=== PATIENT | male | born 1965 | race Caucasian/White ===

== ENCOUNTER 2021-03-31 10:06 | Observation (INO) | payer OTHER, SELFPAY ==
[2021-03-31] VITALS (13 sets, daily range): BP systolic 119–144; BP diastolic 80–99; PULSE 70–131; RESP 16–26; TEMP 36.4–36.9; O2SAT 89–100; BMI 25.4
--- NOTE | 2021-03-31 10:51 | XR_ITS ---
WS: [id number] Exam: XR chest 1V portable [id number] Date/Time of Exam: 03/31/2021 10:52 AM Reason For Exam: SOB Findings: The lungs are clear and fully expanded. Costophrenic angles are sharp. No infiltrates. Bronchovascula r relief appears normal. Cardiac silhouette is unremarkable. Bony elements are intact. XR/XR chest 1V portable [id number] IMPRESSION: Unremarkable chest radiograph.
--- NOTE | 2021-03-31 10:57 | ED_ITS ---
Documented by User: MARIANELA Zepeda 03/31/21 15:35 HPI - SOB/Dyspnea General: Chief Complaint: Shortness of Breath/Dyspnea Stated Complaint: SOB/SENT FROM FOR 78% O2 Time Seen by Provider: 03/31/21 10:52 Source: patient Mode of arrival: ambulatory Limitations: no limitations History of Present Illness: HPI Narrative: Patient is a 55-year-old male who presents to ED today after being seen at [facility] and referred to the ED for complaints of shortness of breath and hypoxia. According to patient O2 sats were 78% on room air at [facility]. Upon arrival he was 89% on room air. He states he has had shortness of breath over the past week. He feels like he is having some mild substernal pain and discomfort but states it does not feel like my heart or anything . He states sometimes he will wake up in the middle of the night with severe shortness of breath. Patient is an every day smoker. He has not noticed any cough apart from his baseline smoker's cough. He has not been running fevers. No body aches. He did notice a headache this morning. He has also had a few episodes of diarrhea. He is unvaccinated for COVID. No low er extremity swelling or calf pain. MD elicited complaint: shortness of breath Pertinent past history: other (smoking, unvaccinated for COVID) Onset (ago): day(s) Timing: constant Severity: moderate Exacerbating factors: exertion Relieving factors: nothing Associated symptoms: Reports chest pain; Deny abdominal pain, chest congestion, dizziness, fever(s), hemoptysis, lightheadedness, nausea, orthopnea, palpitations, syncope or vomiting Related Data: Home oxygen amount: none Review of Systems Const: Denies: fever(s), chills, body aches, fatigue or malaise Eyes: Denies: change in vision ENMT: Denies: throat pain, odynophagia, nasal discharge, nasal congestion or sinus pain Card: Reports: chest pain and dyspnea on exertion; Denies: palpitations, irregular heart rhythm, edema, swelling of feet/ankles, lightheadedness, syncope, pre-syncope, orthopnea, leg pain with exertion or acrocyanosis Resp: Reports: dyspnea, non-productive cough and pain on inspiration; Denies: wheezing, stridor, change in phlegm color, hemoptysis or chest congestion GI: Denies: abdominal pain, nausea, vomiting or diarrhea Musc: Denies: neck pain or back pain Skin/Breast: Denies: rash Neuro: Reports: headache(s); Denies: numbness in extremities, weakness in extremities, sensory changes, difficulty walking or dizziness Physical Exam Const: COMMON NORMALS: no acute distress, average body habitus, patient oriented x3, no limitations, healthy appearing, alert and well nourished GENERAL APPEARANCE: cooperative ORIENTATION/CONSCIOUSNESS: Yes awake, Yes oriented to person, Yes oriented to place and Yes oriented to time HENMT: COMMON NORMALS: normocephalic and atraumatic HEAD & SCALP: normocephalic and atraumatic Chest: COMMONS NORMALS: normal inspection of the chest and normal palpation of entire chest wall Resp: COMMON NORMALS: normal respiratory effort AUSCULTATION: wheezes (faint) expiratory wheezes Cardio: COMMON NORMALS: regular rate and regular rhythm RATE: regular rate RHYTHM: regular rhythm Extremity: COMMON NORMALS: no calf tenderness and no pedal edema Neuro: KORTNEY COMA SCALE: document GCS findings [place] coma scale eye opening: Spontaneous [place] coma scale verbal response: Orientated [place] coma scale motor response: Obey commands Kort[place] coma scale total score: 15 COMMON NORMALS: patient oriented x3, moves all extremities, no focal motor deficits and no sensory deficits noted SENSORIUM/ORIENTATION: Yes alert, Yes oriented to person, Yes oriented to place and Yes oriented to time Skin: COMMON NORMALS: no rashes or lesions noted GENERAL SKIN EXAM: no rashes or lesions noted TRAUMA: no lacerations or abrasions Course Consultations: Consultation #1: Dr. England-requests echocardiogram; will admit Vital Signs: Vital signs: Vital Signs Temperature 98.0 F 04/02/21 11:15 Pulse Rate 99 04/02/21 17:38 Respiratory Rate 22 H 04/02/21 15:48 Blood Pressure 105/56 04/02/21 11:15 Pulse Oximetry 87 L 04/02/21 15:51 MDM - SOB/Dyspnea MDM Narrative: Medical decision making narrative: Patient's labs are overall unremarkable. He has a normal D-dimer. His rapid COVID is negative. His CXR is normal however patient is persistently requiring oxygen. He was ambulated throughout the ED without oxygen and dropped to 80%. This clinically does not make sense with his findings thus far therefore CTA imaging will be obtained for further evaluation. CTA imaging shows no PE. Mild chronic emphysema and possible acute mild bronchiolitis. Again these do not adequately explain patient's hypoxia. During re-examination patient was noted to be in sinus tachycardia in the 130s. Patient will need to come into the hospital for unexplained hypoxia and tachycardia. Spoke to Dr. Vega who agrees with this assessment and will also evaluate patient. I spoken to Dr. England who requests echocardiogram and will admit. Lab Data: Labs: Lab Results 03/31/21 03/31/21 03/31/21 11:54 11:54 11:54 WBC 13.2 10^3/uL H 10 ^3/uL (4.0-10.0) RBC 5.17 10^6/uL 10^6 /uL (4.1-5.3) Hgb 18.4 g/dL H g/dL (11.7-16.6) Hct 54.4 % H % (42.0-52.0) MCV 105.2 fl H fl (80-94) MCH 35.6 pg H pg (28.0-34.0) MCHC 33.8 g/dL g/dL (30.0-36.0) RDW 11.9 % L % (12.1-15.1) Plt Count 209 10^3/cmm 10^3 /cmm (130-400) MPV 8.9 fL fL (7.4-10.4) Neut % (Auto) 77.7 % % Lymph % (Auto) 7.6 % % [place] % (Auto) 11.9 % % Eos % (Auto) 2.0 % % Baso % (Auto) 0.4 % % Neut # (Auto) 10.24 10^3/uL H 1 0^3/uL (1.8-7.7) Lymph # (Auto) 1.0 10^3/uL 10^3/ uL (0.8-4.8) [place] # (Auto) 1.6 10^3/uL H 10^ 3/uL (0.2-0.9) Eos # (Auto) 0.3 10^3/uL 10^3/ uL (0.0-0.8) Baso # (Auto) 0.1 10^3/uL 10^3/ uL (0.0-0.1) Nucleated RBC % (a uto) 0 % % Nucleated RBCs # 0.0 /100WBC /100W BC D-Dimer 0.50 ug/mIFEU ug/ mIFEU (0-0.59) Sodium 138 mmol/L mmol/L (136-145) Potassium 4.8 mmol/L mmol/L (3.5-5.1) Chloride 98 mmol/L mmol/L (98-107) Carbon Dioxide 31 mmol/L H mmol/ L (22-29) Anion Gap 13.8 (5-19) BUN 8 mg/dL mg/dL (6-20) Creatinine 0.9 mg/dL mg/dL (0.7-1.2) GFR Calculation 88.3 mL/min L mL/ min (90-130) Glucose 91 mg/dL mg/dL (65-115) Calculated Osmolal ity 284 mOsm/kg L mOs m/kg (285-295) Lactic Acid Calcium 9.3 mg/dL mg/dL (8.5-10.5) Total Bilirubin 0.7 mg/dL mg/dL (0.15-1.2) AST 13 U/L U/L (0-40) ALT 8 U/L U/L (0-41) Alkaline Phosphata se 127 IU/L IU/L (40-130) Troponin T Baselin e Troponin T [address] [place] Troponin T NT-Pro-B Natriuret Pep 28 pg/mL pg/mL (0-125) Total Protein 7.0 g/dL g/dL (6.6-8.7) Albumin 4.3 g/dL g/dL (3.5-5.2) Globulin 2.7 g/dL g/dL (1.3-4.6) Procalcitonin 0.10 ng/mL ng/mL (0-0.5) Nasal/Oral COVID-1 9 PCR SARS-CoV-2 Ag (Rap id) 03/31/21 03/31/21 03/31/21 11:54 12:50 13:06 WBC RBC Hgb Hct MCV MCH MCHC RDW Plt Count MPV Neut % (Auto) Lymph % (Auto) [place] % (Auto) Eos % (Auto) Baso % (Auto) Neut # (Auto) Lymph # (Auto) [place] # (Auto) Eos # (Auto) Baso # (Auto) Nucleated RBC % (a uto) Nucleated RBCs # D-Dimer Sodium Potassium Chloride Carbon Dioxide Anion Gap BUN Creatinine GFR Calculation Glucose Calculated Osmolal ity Lactic Acid 0.6 mmol/L mmol/L (0.5-2.2) Calcium Total Bilirubin AST ALT Alkaline Phosphata se Troponin T Baselin e 6 ng/L ng/L (0-15) Troponin T [address] [place] Troponin T NT-Pro-B Natriuret Pep Total Protein Albumin Globulin Procalcitonin Nasal/Oral COVID-1 9 PCR SARS-CoV-2 Ag (Rap id) Negative (Negative) 03/31/21 03/31/21 14:33 18:49 WBC RBC Hgb Hct MCV MCH MCHC RDW Plt Count MPV Neut % (Auto) Lymph % (Auto) [place] % (Auto) Eos % (Auto) Baso % (Auto) Neut # (Auto) Lymph # (Auto) [place] # (Auto) Eos # (Auto) Baso # (Auto) Nucleated RBC % (a uto) Nucleated RBCs # D-Dimer Sodium Potassium Chloride Carbon Dioxide Anion Gap BUN Creatinine GFR Calculation Glucose Calculated Osmolal ity Lactic Acid Calcium Total Bilirubin AST ALT Alkaline Phosphata se Troponin T Baselin e Troponin T [address] [place] 6.27 ng/L ng/L (0-15) Delta Troponin T 0.27 ABS# ABS# (0-10) NT-Pro-B Natriuret Pep Total Protein Albumin Globulin Procalcitonin Nasal/Oral COVID-1 9 PCR Not detected SARS-CoV-2 Ag (Rap id) Imaging Data^: CXR: Radiologist's impression: [address] [address] XRay Report Signed Patient: Bryant Hooks Unit #: [id number] : 1965 Age/Sex: 55 / M ADM Date: 03/31/21 Loc: ER Room/Bed: Attending Dr: Ordering Provider/Ordering MD: Nilam De La O Date of Service: 03/31/21 Procedure(s): XR chest 1V portable [id number] Accession Number(s): [id number] Report Number: [id number] WS: [id number] Exam: XR chest 1V portable [id number] Date/Time of Exam: 03/31/2021 10:52 AM Reason For Exam: SOB Findings: The lungs are clear and fully expanded. Costophrenic angles are sharp. No infiltrates. Bronchovascular relief appears normal. Cardiac silhouette is unremarkable. Bony elements are intact. XR/XR chest 1V portable [id number] IMPRESSION: Unremarkable chest radiograph. Dictated By: Jan Rao DO Signed By: Jan Rao DO Signed Date/Time: 03/31/21 1104 DD/ 1103 CTA Chest: Radiologist's impression: [facility] [address] [place] [address] CT Scan Report Signed Patient: Bryant Hooks Unit #: [id number] : 1965 Age/Sex: 55 / M ADM Date: 03/31/21 Loc: ER Room/Bed: Attending Dr: Ordering Provider/Ordering MD: Nilam De La O Date of Service: 03/31/21 Procedure(s): CT angio chest PE protcl [id number] Accession Number(s): [id number] Report Number: [id number] WS: [id number] CT CHEST ANGIOGRAPHY WITH REFORMATS HISTORY: SOB/hypoxia TECHNIQUE: Contiguous axial images are obtained through the chest during arterial injection of intravenous contrast. Images are reconstructed to evaluate the pulmonary arteries. MIP imaging also reviewed. All CT scans at [facility] use at least one of these dose optimization techniques: automated exposure control; mA and/or kV adjustment per patient size (includes targeted exams where dose is matched to clinical indication); or iterative reconstruction. CONTRAST: Omnipaque 350; 140 mL IV. DLP: 1221.07 mGy-cm. COMPARISON: None available. Suboptimal opacification of the pulmonary arteries. No filling defects are identified. 2 separate scans were obtained. Between the 2 scans no pulmonary embolism is appreciated. Mild atherosclerosis aorta. Heart size is normal. There is a small pericardial effusion. No LEFT atrial appendage thrombus. Lungs are hyperinflated. Thickening of the distal interstitium benign granuloma LEFT lower lobe. Mediastinal and hilar lymph nodes. This is probably a reactive adenopathy. The largest lymph node at the RIGHT hilum measures 4 mm. Small hiatal hernia. Visualized liver is normal. No adrenal mass. Negative gallbladder is visualized. No osteoblastic or osteolytic bone disease. Remote healed rib fractures in the posterior LEFT thorax. CT/CT angio chest PE protcl [id number] IMPRESSION: 1. No pulmonary embolism. 2. Chronic emphysema with no pneumonia. 3. Mild interstitial thickening may be chronic or related to a mild acute bronchiolitis. Dictated By: Maris Henry DO Signed By: Maris Herny DO Signed Date/Time: 03/31/21 1505 DD/ 1457 EKG Data^: EKG 1: EKG Interpretation Date: 03/31/21 EKG interpretation time: 12:23 Interpretation: Sinus rhythm Rate [address] elevation or depression changes noted Discharge Plan Discharge Patient Disposition: Admitted As Inpatient Admit Provider: Linn England Clinical Impression: Hypoxia, Tachycardia Condition: Fair Discharge Diet: Regular Discharge Activity: Increase activity as tolerated and Oxygen as instructed Coding Level of Care Code ED Plug Making Operator for Chg Fwd Exam Comprehensive Documented by User: Janeth Vega MD 04/03/21 22:27 HPI - SOB/Dyspnea General: Chief Complaint: Shortness of Breath/Dyspnea Stated Complaint: SOB/SENT FROM FOR 78% O2 Time Seen by Provider: 03/31/21 10:52 Course Vital Signs: Vital signs: Vital Signs Temperature 98.0 F 04/02/21 11:15 Pulse Rate 99 04/02/21 17:38 Respiratory Rate 22 H 04/02/21 15:48 Blood Pressure 105/56 04/02/21 11:15 Pulse Oximetry 87 L 04/02/21 15:51 MDM - SOB/Dyspnea Lab Data: Labs: Lab Results 03/31/21 03/31/21 03/31/21 11:54 11:54 11:54 WBC 13.2 10^3/uL H 10 ^3/uL (4.0-10.0) RBC 5.17 10^6/uL 10^6 /uL (4.1-5.3) Hgb 18.4 g/dL H g/dL (11.7-16.6) Hct 54.4 % H % (42.0-52.0) MCV 105.2 fl H fl (80-94) MCH 35.6 pg H pg (28.0-34.0) MCHC 33.8 g/dL g/dL (30.0-36.0) RDW 11.9 % L % (12.1-15.1) Plt Count 209 10^3/cmm 10^3 /cmm (130-400) MPV 8.9 fL fL (7.4-10.4) Neut % (Auto) 77.7 % % Lymph % (Auto) 7.6 % % [place] % (Auto) 11.9 % % Eos % (Auto) 2.0 % % Baso % (Auto) 0.4 % % Neut # (Auto) 10.24 10^3/uL H 1 0^3/uL (1.8-7.7) Lymph # (Auto) 1.0 10^3/uL 10^3/ uL (0.8-4.8) [place] # (Auto) 1.6 10^3/uL H 10^ 3/uL (0.2-0.9) Eos # (Auto) 0.3 10^3/uL 10^3/ uL (0.0-0.8) Baso # (Auto) 0.1 10^3/uL 10^3/ uL (0.0-0.1) Nucleated RBC % (a uto) 0 % % Nucleated RBCs # 0.0 /100WBC /100W BC D-Dimer 0.50 ug/mIFEU ug/ mIFEU (0-0.59) Sodium 138 mmol/L mmol/L (136-145) Potassium 4.8 mmol/L mmol/L (3.5-5.1) Chloride 98 mmol/L mmol/L (98-107) Carbon Dioxide 31 mmol/L H mmol/ L (22-29) Anion Gap 13.8 (5-19) BUN 8 mg/dL mg/dL (6-20) Creatinine 0.9 mg/dL mg/dL (0.7-1.2) GFR Calculation 88.3 mL/min L mL/ min (90-130) Glucose 91 mg/dL mg/dL (65-115) Calculated Osmolal ity 284 mOsm/kg L mOs m/kg (285-295) Lactic Acid Calcium 9.3 mg/dL mg/dL (8.5-10.5) Total Bilirubin 0.7 mg/dL mg/dL (0.15-1.2) AST 13 U/L U/L (0-40) ALT 8 U/L U/L (0-41) Alkaline Phosphata se 127 IU/L IU/L (40-130) Troponin T Baselin e Troponin T [address] [place] Troponin T NT-Pro-B Natriuret Pep 28 pg/mL pg/mL (0-125) Total Protein 7.0 g/dL g/dL (6.6-8.7) Albumin 4.3 g/dL g/dL (3.5-5.2) Globulin 2.7 g/dL g/dL (1.3-4.6) Procalcitonin 0.10 ng/mL ng/mL (0-0.5) Nasal/Oral COVID-1 9 PCR SARS-CoV-2 Ag (Rap id) 03/31/21 03/31/21 03/31/21 11:54 12:50 13:06 WBC RBC Hgb Hct MCV MCH MCHC RDW Plt Count MPV Neut % (Auto) Lymph % (Auto) [place] % (Auto) Eos % (Auto) Baso % (Auto) Neut # (Auto) Lymph # (Auto) [place] # (Auto) Eos # (Auto) Baso # (Auto) Nucleated RBC % (a uto) Nucleated RBCs # D-Dimer Sodium Potassium Chloride Carbon Dioxide Anion Gap BUN Creatinine GFR Calculation Glucose Calculated Osmolal ity Lactic Acid 0.6 mmol/L mmol/L (0.5-2.2) Calcium Total Bilirubin AST ALT Alkaline Phosphata se Troponin T Baselin e 6 ng/L ng/L (0-15) Troponin T [address] [place] Troponin T NT-Pro-B Natriuret Pep Total Protein Albumin Globulin Procalcitonin Nasal/Oral COVID-1 9 PCR SARS-CoV-2 Ag (Rap id) Negative (Negative) 03/31/21 03/31/21 14:33 18:49 WBC RBC Hgb Hct MCV MCH MCHC RDW Plt Count MPV Neut % (Auto) Lymph % (Auto) [place] % (Auto) Eos % (Auto) Baso % (Auto) Neut # (Auto) Lymph # (Auto) [place] # (Auto) Eos # (Auto) Baso # (Auto) Nucleated RBC % (a uto) Nucleated RBCs # D-Dimer Sodium Potassium Chloride Carbon Dioxide Anion Gap BUN Creatinine GFR Calculation Glucose Calculated Osmolal ity Lactic Acid Calcium Total Bilirubin AST ALT Alkaline Phosphata se Troponin T Baselin e Troponin T [address] [place] 6.27 ng/L ng/L (0-15) Delta Troponin T 0.27 ABS# ABS# (0-10) NT-Pro-B Natriuret Pep Total Protein Albumin Globulin Procalcitonin Nasal/Oral COVID-1 9 PCR Not detected SARS-CoV-2 Ag (Rap id) Discharge Plan Discharge Patient Disposition: Admitted As Inpatient Admit Provider: Linn England Clinical Impression: Hypoxia, Tachycardia Condition: Fair Discharge Diet: Regular Discharge Activity: Increase activity as tolerated and Oxygen as instructed Coding Level of Care Code ED Plug Making Operator for Jordang Fwd Exam Comprehensive
--- NOTE | 2021-03-31 10:58 | ECG_ITS ---
[facility] Test Date: 2021-03-31 Pat Name: Bryant Hooks Department: Room: Gender: Male Rotary Driller Prospecting: : 1965 Requested By: Nilam De La O Order Number: [id number] Henri MD: Tu Montoya M.D. Measurements Intervals [place] Rate: 93 P: 79 LA: 151 QRS: 89 QRSD: 78 T: 64 QT: 341 QTc: 425 Interpretive Statements SINUS RHYTHM LOW QRS VOLTAGE IN EXTREMITY LEADS [QRS DEFLECTION < 0.5 mV IN LIMB LEADS] PATTERN CONSISTENT WITH PULMONARY DISEASE No previous ECG available for comparison Electronically Signed On 03-31-2021 23:47:22 CDT by Tu Montoya M.D. [id number]
[2021-03-31 12:06] LABS: Basophils # 0.1 10^3/uL (0.0-0.1); Basophils % 0.4 %; Eosinophils # 0.3 10^3/uL (0.0-0.8); Hematocrit 54.4 % (42.0-52.0); Hemoglobin 18.4 g/dL (11.7-16.6); Lymphocytes % 7.6 %; Mean Corpuscular HGB Conc 33.8 g/dL (30.0-36.0); Mean Corpuscular Hemoglobin 35.6 pg (28.0-34.0); Mean Corpuscular Volume 105.2 fl (80-94); Mean Platelet Volume 8.9 fL (7.4-10.4); Monocytes # 1.6 10^3/uL (0.2-0.9); Monocytes % 11.9 %; Neutrophils # 10.24 10^3/uL (1.8-7.7); Neutrophils % 77.7 %; Nucleated Red Blood Cells % 0 %; Platelet Count 209 10^3/cmm (130-400); Red Blood Count 5.17 10^6/uL (4.1-5.3); Red Cell Distribution Width 11.9 % (12.1-15.1); White Blood Count 13.2 10^3/uL (4.0-10.0)
[2021-03-31 12:29] LABS: Troponin(5th) Baseline 6 ng/L (0-15)
[2021-03-31 12:39] LABS: Alanine Aminotransferase 8 U/L (0-41); Albumin Level 4.3 g/dL (3.5-5.2); Alkaline Phosphatase 127 IU/L (40-130); Aspartate Amino Transferase 13 U/L (0-40); Blood Urea Nitrogen 8 mg/dL (6-20); Calcium 9.3 mg/dL (8.5-10.5); Carbon Dioxide 31 mmol/L (22-29); Chloride 98 mmol/L (98-107); Globulin 2.7 g/dL (1.3-4.6); Glomerular Filtration Rate 88.3 mL/min (90-130); Glucose 91 mg/dL (65-115); NT Pro B Type Natriuretic Pept 28 pg/mL (0-125); Osmolality Calculated 284 mOsm/kg (285-295); Sodium 138 mmol/L (136-145); Total Bilirubin 0.7 mg/dL (0.15-1.2)
[2021-03-31 12:46] LABS: Anion Gap 13.8 (5-19); Potassium 4.8 mmol/L (3.5-5.1)
[2021-03-31 13:35] LABS: Lactic Sepsis W/Reflex 0.6 mmol/L (0.5-2.2)
[2021-03-31 13:37] LABS: SARS Covid-2 Antigen Negative (Negative)
--- NOTE | 2021-03-31 14:25 | CT_ITS ---
WS: [id number] CT CHEST ANGIOGRAPHY WITH REFORMATS HISTORY: SOB/hypoxia TECHNIQUE: Contiguous axial images are obtained through the chest during arterial injection of intrav enous contrast. Images are reconstructed to evaluate the pulmonary arteries. MIP imaging also reviewe d. All CT scans at [facility] use at least one of these dose optimization techniques: automat ed exposure control; mA and/or kV adjustment per patient size (includes targeted exams where dose is matched to clinical indication); or iterative reconstruction. CONTRAST: Omnipaque 350; 140 mL IV. DLP: 1221.07 mGy-cm. COMPARISON: None available. Suboptimal opacification of the pulmonary arteries. No filling defects are identified. 2 separate sca ns were obtained. Between the 2 scans no pulmonary embolism is appreciated. Mild atherosclerosis aort a. Heart size is normal. There is a small pericardial effusion. No LEFT atrial appendage thrombus. Lungs are hyperinflated. Thickening of the distal interstitium benign granuloma LEFT lower lobe. Medi astinal and hilar lymph nodes. This is probably a reactive adenopathy. The largest lymph node at the RIGHT hilum measures 4 mm. Small hiatal hernia. Visualized liver is normal. No adrenal mass. Negative gallbladder is visualized. No osteoblastic or osteolytic bone disease. Remote healed rib fractures in the posterior LEFT thorax. CT/CT angio chest PE protcl [id number] IMPRESSION: 1. No pulmonary embolism. 2. Chronic emphysema with no pneumonia. 3. Mild interstitial thickening may be chronic or related to a mild acute bron chiolitis.
--- NOTE | 2021-03-31 14:26 | PC.NURSE ---
pt ambulated down otero on ra and spo2 dropped to 80%
[2021-03-31] MEDS: iohexol 350 mg/mL 100 mL Btl IV (14:45)
[2021-03-31 15:15] LABS: Troponin 5 2HR 6.27 ng/L (0-15); Troponin 5 2HR Delta 0.27 ABS# (0-10)
--- NOTE | 2021-03-31 15:27 | PC.PHAR ---
PT STATES HE TAKES NO RX MEDICATIONS
--- NOTE | 2021-03-31 15:30 | ECG_ITS ---
[facility] Test Date: 2021-03-31 Pat Name: Bryant Hooks Department: Room: Gender: Male Sock Mender: : 1965 Requested By: Janeth Vega Order Number: [id number] Henri MD: Tu Montoya M.D. Measurements Intervals [place] Rate: 132 P: 114 AR: 131 QRS: 100 QRSD: 76 T: 58 QT: 290 QTc: 430 Interpretive Statements SINUS TACHYCARDIA BORDERLINE RIGHT AXIS DEVIATION [QRS AXIS > 90] PATTERN CONSISTENT WITH PULMONARY DISEASE INTERPRETATION BASED ON A DEFAULT AGE OF 40 YEARS Compared to ECG 03/31/2021 12:23:41 Sinus rhythm no longer present Electronically Signed On 03-31-2021 23:48:52 CDT by Tu Montoya M.D. [id number] f
[2021-03-31] MEDS: metoprolol tartrate 1 mg/1 mL SDV 5 mL 5 MG IVP (15:36)
[2021-03-31] MEDS: sodium chloride 0.9% 1,000 ML 999 ML IV (15:36)
--- NOTE | 2021-03-31 17:55 | P.HP_ITS ---
Providers/Chief Complaint Admitting Physician: Linn England MD Chief Complaint: SOB/SENT FROM FOR 78% O2 History of Present Illness Bryant Hooks is a 55 year old male with no significant past medical history or surgical history presented to the ER with complaints of shortness of breath. He also complained of a little bit of mid substernal pain which he has never had before. The pain lasted a few seconds and went away and never happen again. He does not use any oxygen at home. Patient is an active smoker smokes 2 packs/day. Lives alone. Is not vaccinated for Covid and has not been diagnosed with Covid in the past. Patient saturation on room air was 70% on arrival and then 89% on room air shortly thereafter. He was placed on 2 L and was saturating above 90% but after ambulation his oxygen saturation dropped to 80%. Labs were unremarkable in the ER. Rapid Covid was done which was negative. Patient was tachycardic in the 130s which EKG confirmed and therefore D-dimer was done which was D-dimer. CTA chest was done and PE was ruled out. CT chest did show a possible mild acute bronchiolitis. BNP normal. Baseline troponin normal. Delta troponin negative. C-reactive protein 10.6. Procalcitonin 0.09. Patient does endorse drinking alcohol daily 3 beers a night but answered 0 on CAGE questionnaire. He does not have a primary care doctor and does not follow- up with anybody. He has not been hospitalized in the recent few years. When seen by medical hospitalist he was in room 112 bed to sitting up in bed w ith nonlabored breathing saturating above 90% on 2 L. Appearing very comfortable and looking well. He had no complaints at this time was no longer shortness of breath or any chest pain. He denies having COPD or ever having a COPD exacerbation before. Review of Systems General: Reports: 10 or more systems reviewed and unremarkable except in HPI and below Medications/Allergies Home Medications Medication Instructions Recorded Confirmed Last Taken Type aspirin 650 mg PO Q6H PRN 03/31/21 03/31/21 03/31/21 03:00 History 650 MG Allergies Allergy/AdvReac Type Severity Reaction Status Date / Time Penicillins Allergy Unknown Verified 03/31/21 15:27 Vitals/I&O/Wt Last Vital Signs Temp 97.6 F 10/25/21 12:26 Pulse 76 03/31/21 17:52 Resp 18 03/31/21 17:52 BP 131/94 03/31/21 17:52 Pulse Ox 100 03/31/21 17:52 Weight last 48 hrs Weight 71.668 kg Physical Exam Narrative: EXAM NARRATIVE: General: Alert oriented x3, patient seen sitting up in bed on 2 L nasal cannula appearing very comfortable. HEENT: Normocephalic, atraumatic, EOMI, Cardio: Regular rate rhythm, normal S1-S2, no murmurs rubs gallops, Respiratory: Good bilateral air entry, mild rhonchi appreciated bilaterally. GI: Abdomen soft, nontender, nondistended, bowel sounds + Behavior: Appropriate and cooperative Extremities: Pulses 2+, no edema, no cyanosis Data : 04/01/21 04:48 04/01/21 04:48 A&P Assessment and plan (1) COPD exacerbation: Status: Acute (2) Hypoxia: Status: Acute (3) Polycythemia: Status: Acute (4) Alcohol use: Status: Acute (5) Nicotine dependence: Status: Acute Additional A&P Information #Possible COPD exacerbation/acute bronchiolitis ?Patient has been hypoxic in the ER and is requiring oxygen. Rapid Covid was negative. PCR Covid has been sent to lab. Ferritin is normal D-dimer is normal. Chest x-ray and CT do not show any infiltrates. There is evidence of chronic emphysema. Patient would benefit from outpatient pulmonary function tests. ?I will place him on Solu-Medrol 40 daily to see the response. Will not start antibiotics. Will reevaluate patient tomorrow and decide. Procalcitonin is also negative. Will place on DuoNeb every 4 hours. ?We will check echocardiogram to rule out cardiac etiology of shortness of breath -We will also check lipid profile and hemoglobin A1c. ?We will check TSH due to patient's tachycardic episode. -I am unclear if this is Covid but will rule out. #Polycythemia #Nicotine dependence ?Hemoglobin 18.4. It could be secondary to smoking. #Alcohol use 0 out of 4 on CAGE questionnaire ?We will start folic acid and thiamine daily Fluids: Not indicated Electrolytes: Replete as needed Nutrition: Regular diet Activity: As tolerated DVT prophylaxis Heparin subcu. Attestations Medical Necessity Statement*: Expected to cross greater than 48 hours due to oxygen requirement unless improvement earlier. Time Spent in Patient Care: Greater than 35 minutes Coding Level of Care Code Acute Animal Care Service Worker for Chg Fwd Diagnoses COPD exacerbation J44.1 Hypoxia R09.02 Polycythemia D75.1 Alcohol use Z72.89 Nicotine dependence F17.200
[2021-03-31 19:45] LABS: Troponin 5 6HR 7.53 ng/L (0-15); Troponin 5 6HR Delta 1.53 ng/L (0-12)
[2021-03-31 20:39] LABS: NT Pro B Type Natriuretic Pept 29 pg/mL (0-125); Procalcitonin 0.09 ng/mL (0-0.5)
[2021-03-31] MEDS: heparin 5,000 unit/mL INJ 1 mL 5000 UNIT SUBCUT (20:43)
[2021-03-31 20:50] LABS: C Reactive Protein 10.6 mg/L (0.0-4.9); Ferritin 398 ng/mL (30-400)
--- NOTE | 2021-03-31 21:29 | ECG_ITS ---
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 Measurements Intervals [place] Rate: 83 P: 79 NC: 158 QRS: 88 QRSD: 79 T: 60 QT: 356 QTc: 419 Interpretive Statements SINUS RHYTHM LOW QRS VOLTAGE IN EXTREMITY LEADS [QRS DEFLECTION < 0.5 mV IN LIMB LEADS] Compared to ECG 03/31/2021 15:17:00 Low QRS voltage now present Sinus tachycardia no longer present Electronically Signed On 03-31-2021 23:58:27 CDT by Tu Montoya M.D. [id number]
[2021-03-31] MEDS: ipratropium-albuterol 3 mL Neb INHALATION (23:45)
[2021-04-01] VITALS (15 sets, daily range): BP systolic 99–120; BP diastolic 63–77; PULSE 81–126; RESP 15–27; TEMP 36.6–36.9; O2SAT 89–94
[2021-04-01] MEDS: heparin 5,000 unit/mL INJ 1 mL 5000 UNIT SUBCUT ×3 (03:41→20:46)
[2021-04-01] MEDS: ipratropium-albuterol 3 mL Neb INHALATION ×2 (04:47→13:25)
[2021-04-01 05:11] LABS: Basophils % 0.1 %; Eosinophils # 0.5 10^3/uL (0.0-0.8); Eosinophils % 7.2 %; Hematocrit 51.9 % (42.0-52.0); Hemoglobin 17.6 g/dL (11.7-16.6); Lymphocytes # 0.8 10^3/uL (0.8-4.8); Mean Corpuscular HGB Conc 33.9 g/dL (30.0-36.0); Mean Corpuscular Hemoglobin 36.1 pg (28.0-34.0); Mean Corpuscular Volume 106.6 fl (80-94); Mean Platelet Volume 8.6 fL (7.4-10.4); Neutrophils # 5.02 10^3/uL (1.8-7.7); Neutrophils % 68.3 %; Nucleated Red Blood Cells % 0 %; Platelet Count 181 10^3/cmm (130-400); Red Blood Count 4.87 10^6/uL (4.1-5.3); White Blood Count 7.4 10^3/uL (4.0-10.0)
[2021-04-01 05:26] LABS: Alanine Aminotransferase 7 U/L (0-41); Albumin Level 3.7 g/dL (3.5-5.2); Alkaline Phosphatase 129 IU/L (40-130); Anion Gap 7.9 (5-19); Aspartate Amino Transferase 13 U/L (0-40); Blood Urea Nitrogen 8 mg/dL (6-20); Carbon Dioxide 36 mmol/L (22-29); Chloride 100 mmol/L (98-107); Chol HDL Ratio 3.12 mg/dL (1.0-5.00); Cholesterol 134 mg/dL (0-200); Globulin 2.9 g/dL (1.3-4.6); Glomerular Filtration Rate 101.1 mL/min (90-130); Glucose 94 mg/dL (65-115); HDL Cholesterol 43 mg/dL (60-100); LDL Cholesterol Calculated 74 mg/dL (50-129); LDL HDL Ratio 1.72 RATIO (0.00-3.22); Osmolality Calculated 286 mOsm/kg (285-295); Potassium 4.9 mmol/L (3.5-5.1); Sodium 139 mmol/L (136-145); Total Bilirubin 0.6 mg/dL (0.15-1.2); Total Protein 6.6 g/dL (6.6-8.7); Triglycerides 84 mg/dL (0-150)
[2021-04-01 06:41] LABS: Estmated Average Glucose 100; Hemoglobin A1C 5.1 % (4.0-6.0)
[2021-04-01] MEDS: folic acid 1 mg Tablet PO (07:53)
[2021-04-01] MEDS: thiamine 100 mg Tablet PO (07:53)
--- NOTE | 2021-04-01 08:00 | ECG_ITS ---
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 Measurements Intervals [place] Rate: 88 P: 74 MI: 153 QRS: 96 QRSD: 81 T: 68 QT: 347 QTc: 420 Interpretive Statements SINUS RHYTHM BORDERLINE RIGHT AXIS DEVIATION [QRS AXIS > 90] PATTERN CONSISTENT WITH PULMONARY DISEASE SEPTAL MYOCARDIAL INFARCTION , PROBABLY OLD [40+ ms Q WAVE IN V1/V2] Compared to ECG 03/31/2021 21:14:12 Myocardial infarct finding now present Electronically Signed On 04-01-2021 23:32:55 CDT by Colby Noe M.D. [email or web address] [email or web address] Hong Kong Holdings [id number]
--- NOTE | 2021-04-01 08:00 | XR_ITS ---
WS: [id number] Exam: XR chest 1V portable [id number] Date/Time of Exam: 04/01/2021 8:00 AM Reason For Exam: follow up Comparison 03/31/2021. The lungs are clear and fully inflated. Normal cardiomediastinal structures and regional bony element s. No pleural effusions. XR/XR chest 1V portable [id number] IMPRESSION: 1. Normal chest, no change.
--- NOTE | 2021-04-01 08:16 | P.PN_ITS ---
Subjective Subjective: Interval history: Seen and examined this morning. He is on 4 L nasal cannula. Previously at home he was not on any oxygen. He has very decreased bilateral air movement with mild rhonchi and wheezes present. He states he feels a little bit better but not entirely back to baseline. Vitals/I&O/Wt Last Vital Signs Temp 97.8 F 04/01/21 08:09 Pulse 95 04/01/21 08:09 Resp 27 H 04/01/21 08:09 BP 114/77 04/01/21 08:09 Pulse Ox 90 04/01/21 08:09 03/31/21 04/01/21 04/01/21 22:59 06:59 14:59 Intake Total 150 / 150 Balance 150 / 150 Weight last 48 hrs Weight 71.668 kg Physical Exam Narrative: EXAM NARRATIVE: General: Alert oriented x3, patient seen sitting up in bed on 4 L nasal cannula not in acute distress. HEENT: Normocephalic, atraumatic, EOMI, Cardio: Regular rate rhythm, normal S1-S2, no murmurs rubs gallops, Respiratory: Diminished bilateral air entry, wheezes and rhonchi present throughout lung li. GI: Abdomen soft, nontender, nondistended, bowel sounds + Behavior: Appropriate and cooperative Extremities: Pulses 2+, no edema, no cyanosis Data : 04/01/21 04:48 04/01/21 04:48 A&P Assessment and plan (1) COPD exacerbation: Status: Acute (2) Hypoxia: Status: Acute (3) Polycythemia: Status: Acute (4) Alcohol use: Status: Acute (5) Nicotine dependence: Status: Acute Additional A&P Information #Acute COPD exacerbation/acute bronchiolitis -Patient probably has underlying COPD due to his smoking. ?Patient has been hypoxic in the ER and is requiring oxygen. Rapid Covid was negative. PCR Covid has been sent to lab. Ferritin is normal D-dimer is normal. Chest x-ray and CT do not show any infiltrates. There is evidence of chronic emphysema. Patient would benefit from outpatient pulmonary function tests. ?Procalcitonin negative. There is no evidence of pneumonia. I will increase So garrett-Medrol from 40 daily to 40 every 8 hours. We will also add azithromycin for 5 days. Duo nebs every 4 hours [id number]. Will add incentive spirometer and Acapella. ?Echo is pending Hemoglobin A1c and lipid profile is also pending TSH normal, procalcitonin normal Covid PCR pending. #Polycythemia #Nicotine dependence ?Hemoglobin 18.4. It could be secondary to smoking. #Alcohol use 0 out of 4 on CAGE questionnaire ?We will start folic acid and thiamine daily Fluids: Not indicated Electrolytes: Replete as needed Nutrition: Regular diet Activity: As tolerated DVT prophylaxis Heparin subcu. Attestations Medical Necessity Statement*: Requires another 2 days of inpatient stay. Time Spent in Patient Care: less than 15 minutes Coding Level of Care Code Acute Property Field Inspector for [facility] Fwd Diagnoses COPD exacerbation J44.1 Hypoxia R09.02 Polycythemia D75.1 Alcohol use Z72.89 Nicotine dependence F17.200
[2021-04-01] MEDS: azithromycin 500 MG in sodium chloride 0.9% 250 ML 250 MG IV (12:20)
--- NOTE | 2021-04-01 14:38 | ECG_ITS ---
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 Measurements Intervals [place] Rate: 87 P: 75 IN: 152 QRS: 84 QRSD: 81 T: 69 QT: 349 QTc: 420 Interpretive Statements SINUS RHYTHM INDETERMINATE AXIS Compared to ECG 04/01/2021 09:33:52 Indeterminate axis now present Myocardial infarct finding no longer present Electronically Signed On 04-01-2021 23:29:39 CDT by Colby Noe M.D. [email or web address] [email or web address] medical centerTherOxgeorgetown behavioral [email or web address]/store/[id number]
--- NOTE | 2021-04-01 20:18 | PC.NURSE ---
Shift Note Frequent safety and comfort rounds continue. Orders and/or nursing care completed as indicated. Patient monitored for response to intervention and treatment(s). Education provided includes breathing treatments, solumedrol, smoking cessation, deep breathing exercises. Patient and/or loan servicing representative teaches back. Will continue to monitor.
[2021-04-01] MEDS: ipratropium 0.5 mg/2.5 mL Neb INHALATION ×2 (20:45→23:52)
[2021-04-01] MEDS: levalbuterol 0.63 mg/3 mL Neb INHALATION ×2 (20:45→23:52)
[2021-04-02] VITALS (15 sets, daily range): BP systolic 105–118; BP diastolic 56–74; PULSE 87–116; RESP 16–22; TEMP 36.7; O2SAT 86–93
[2021-04-02] MEDS: heparin 5,000 unit/mL INJ 1 mL 5000 UNIT SUBCUT ×2 (03:27→11:11)
--- NOTE | 2021-04-02 05:00 | USCV_ITS ---
Vin Hooksdie Age: 55 Gender: M : 1965 Exam Date: 04/02/2021 06:34 Ordering Phys: Linn England MD Technologist: Aleksandra Arias [place] [facility] [facility] [place] Indication: SOB BP: 109 / 74 HR: 87 Rhythm: Sinus Technical Quality: Adequate MEASUREMENTS (Male / Female) Normal Values 2D ECHO LV Diastolic Diameter PLAX 4.1 cm 4.2 - 5.9 / 3.9 - 5.3 cm LV Systolic Diameter PLAX 3.2 cm IVS Diastolic Thickness 1.3 cm 0.6 - 1.0 / 0.6 - 0.9 cm IVS Systolic Thickness 1.7 cm LVPW Diastolic Thickness 1.8 cm 0.6 - 1.0 / 0.6 - 0.9 cm LVPW Systolic Thickness 2.1 cm LVOT Diameter 2.0 cm LV Ejection Fraction 2D Teich 45.7 % LV Ejection Fraction MOD 2C 64.0 % LV Ejection Fraction 2C AL 66.0 % LA Diameter 3.1 cm LA Width 2.5 cm LA Height 3.1 cm RA Width 2.0 cm RA Height 3.2 cm Aorta at Sinotubular Diameter 2.7 cm M-MODE Aortic Annulus Diameter 2.9 cm LA Ao Ratio MM 1.0 MV E Point Septal Separation 0.4 cm DOPPLER AV Peak Velocity 125.7 cm/s LVOT Peak Velocity 86.0 cm/s AV Area Cont Eq vti 2.3 cm squared AV Area Cont Eq pk 2.2 cm squared MV Peak Velocity 80.0 cm/s MV Area PHT 3.9 cm squared Mitral E to A Ratio 1.1 MV E' Velocity 45.5 cm/s Mitral E to MV E' Ratio 8.5 Mitral E to LV E' Lateral Ratio 8.5 Mitral E to LV E' Septal Ratio 8.5 TV Peak E Velocity 45.0 cm/s Right Atrial Pressure 3.0 mmHg PV Peak Velocity 87.0 cm/s RV Acceleration Time 0.1 s RV Ejection Time 0.3 s RV AcT/ET 0.3 FINDINGS Left Ventricle Normal left ventricular size and systolic function, EF 62 %. No regional wall motion abnormalities. Mild left ventricular hypertrophy. Right Ventricle The right ventricle is normal in size and function. Right Atrium The right atrium is normal in size. Left Atrium The left atrium is normal in size. Mitral Valve No gross abnormalities noted Aortic Valve No gross abnormalities noted Tricuspid Valve No gross abnormalities noted Pulmonic Valve Pulmonic valve not well visualized. Pericardium Normal pericardium without effusion. Aorta Normal aortic annulus size. CONCLUSIONS Normal left ventricular size and systolic function, EF 62 %. No regional wall motion abnormalities. Mild left ventricular hypertrophy. Normal cardiac chamber sizes. Valve morphologies could not be delineated well. No gross abnormalities noted There is no pericardial effusion. Technically difficult study because of the poor ultrasonic window. Dr Tu Montoya MD FACC (Electronically Signed) Final Date: 02 April 2021 14:03 S
[2021-04-02 05:30] LABS: Basophils % 0.1 %; Eosinophils % 0.1 %; Hematocrit 54.8 % (42.0-52.0); Hemoglobin 18.5 g/dL (11.7-16.6); Lymphocytes # 0.3 10^3/uL (0.8-4.8); Lymphocytes % 2.9 %; Mean Corpuscular HGB Conc 33.8 g/dL (30.0-36.0); Mean Corpuscular Hemoglobin 35.3 pg (28.0-34.0); Mean Corpuscular Volume 104.6 fl (80-94); Mean Platelet Volume 8.7 fL (7.4-10.4); Monocytes # 0.2 10^3/uL (0.2-0.9); Monocytes % 1.4 %; Neutrophils # 11.17 10^3/uL (1.8-7.7); Neutrophils % 95.2 %; Nucleated Red Blood Cells % 0 %; Platelet Count 216 10^3/cmm (130-400); Red Blood Count 5.24 10^6/uL (4.1-5.3); Red Cell Distribution Width 11.8 % (12.1-15.1); White Blood Count 11.7 10^3/uL (4.0-10.0)
[2021-04-02 05:56] LABS: Blood Urea Nitrogen 11 mg/dL (6-20); Calcium 9.3 mg/dL (8.5-10.5); Carbon Dioxide 32 mmol/L (22-29); Chloride 98 mmol/L (98-107); Glomerular Filtration Rate 140.9 mL/min (90-130); Glucose 135 mg/dL (65-115); Osmolality Calculated 281 mOsm/kg (285-295); Sodium 135 mmol/L (136-145)
[2021-04-02 06:00] LABS: Anion Gap 9.7 (5-19); Potassium 4.7 mmol/L (3.5-5.1)
--- NOTE | 2021-04-02 06:15 | NUR.SHIFT ---
Shift Note Frequent safety and comfort rounds continue. Orders and/or nursing care completed as indicated. Patient monitored for response to intervention and treatment(s). Education provided includes[Oxygen importance and interventions]. Patient and/or truck sales representative verbalizes understanding. Will continue to monitor.
[2021-04-02] MEDS: levalbuterol 0.63 mg/3 mL Neb INHALATION ×3 (07:30→15:47)
[2021-04-02] MEDS: ipratropium 0.5 mg/2.5 mL Neb INHALATION ×3 (07:30→15:47)
[2021-04-02] MEDS: folic acid 1 mg Tablet PO (07:46)
[2021-04-02] MEDS: thiamine 100 mg Tablet PO (07:46)
[2021-04-02] MEDS: azithromycin 250 mg Tablet PO (07:46)
--- NOTE | 2021-04-02 09:50 | PC.CHAP ---
Pastoral Care Encounter/Spiritual Assessment Type of Contact [] Declined prison warden visit [] Patient/Family/Request visit [] Outpatient visit [] Follow-up visit [] Physician referral [] Code/Alert [x] Routine visit [] Staff referral [] Actively dying [] Patient sleeping [] Family support [] [] Out of room [] Palliative care [] [x] Receiving care in room [] Pre-surgical visit [] Trauma [] Long length of stay [] ICU visit [] Other: Relational/Emotional Strength [] Patient feels connected with others/family/visitors/staff [] Distress [] Loneliness/isolation [] Abandonment Spirituality of Patient [] Person of Rain [] Attends Baptist of their Rain [] Believes in Prayer [] Reads Bible or Hinduism materials [] There are Spiritual issues to be addressed Sausage Cooker Interventions [x] Prayer [] Active listening [] Non-anxious presence [] Spiritual/emotional support [] Crisis/trauma care [] Spiritual counseling [] Bereavement support [] Provided bereavement packet [] Provided Bible/devotional materials [] Provided toy/stuffed animal, coloring book to patient or family member [] Provided Communion [] Anointing/Lula [] Salvation [x] Completed spiritual assessment [] Other: Impact on Illness or Injury [] Angry [] Fearful [] Anxious [] Often cries [] Exhaustion [] Unable to work [] Unable to attend adventism [] Unable to walk/stand [] Unable to read [] Unable to drive [] Unable to eat/drink [] Unable to sleep [] Unable to be with family [] Patient intubated [] Other: Summary Time spent with patient
--- NOTE | 2021-04-02 10:02 | XR_ITS ---
WS: [id number] Exam: XR chest 1V portable [id number] Date/Time of Exam: 04/02/2021 10:04 AM Reason For Exam: Follow up Comparison 04/01/2021. Mild plaque atelectasis in the left base. No consolidating infiltrate. The lungs are fully expanded. Normal cardiomediastinal structures and bony elements. XR/XR chest 1V portable [id number] IMPRESSION: 1. Mild plaque atelectasis in the left base. No acute process noted.
[2021-04-02 11:05] LABS: Coronavirus Test Green County Not Detected
[2021-04-02] MEDS: sodium chloride 0.9% 500 ML IV (11:11)
[2021-04-02 11:28] LABS: ABG PCO2 49.9 mmHg (35-45); ABG PH Result 7.41 (7.35-7.45); Alveolar-Arterial Oxygen Gradi 21.9 mmHg (5-10); Arterial Blood Gas Hematocrit 57.2 % (42-52); Base Excess ABG 5.3 mmol/L (-2.0-2.0); Blood Gas Allen Test Pos; Blood Gas Sample Site Radial, right; Blood Gas Sample Type Arterial; Carboxyhemoglobin 1.1 %THgb (0.4-20.1); HCO3 ABG 31.6 mmol/L (22-26); HGB O2 Sat 87.2 % (95-100); Ionized Calcium Level - ABG 1.2 mmol/L (1.1-1.4); Methemoglobin 0.6 % (0.4-1.5); Oxygen Device NC; Oxygen Saturation ABG 88.7; PO2 ABG 53.7 mmHg (80.0-100.0); Potassium Level - ABG 4.2 mmol/L (3.5-5.0); Total Hemoglobin 18.7 g/dL (14-18)
--- NOTE | 2021-04-02 16:18 | PM.DCS ---
Discharge Providers Date of Admission: 03/31/21 18:54 Date of Discharge: April 02, 2021 Attending Provider at Admission: Linn England MD Attending Provider at Discharge: Linn England MD Diagnoses at Discharge Discharge Diagnosis (1) COPD exacerbation: Status: Acute (2) Hypoxia: Status: Acute (3) Polycythemia: Status: Acute (4) Alcohol use: Status: Acute (5) Nicotine dependence: Status: Acute Reason for Visit Reason for Visit: SOB/SENT FROM FOR 78% O2 Hospital Course Hospital Course Bryant Hooks is a 55 year old male with no significant past medical history or surgical history presented to the ER with complaints of shortness of breath. He also complained of a little bit of mid substernal pain which he has never had before. The pain lasted a few seconds and went away and never happen again. He does not use any oxygen at home. Patient is an active smoker smokes 2 packs/day. Lives alone. Is not vaccinated for Covid and has not been diagnosed with Covid in the past. Patient saturation on room air was 70% on arrival and then 89% on room air shortly thereafter. He was placed on 2 L and was saturating above 90% but after ambulation his oxygen saturation dropped to 80%. Labs were unremarkable in the ER. Rapid Covid was done which was negative. Patient was tachycardic in the 130s which EKG confirmed and therefore D-dimer was done which was D-dimer. CTA chest was done and PE was ruled out. CT chest did show a possible mild acute bronchiolitis. BNP normal. Baseline troponin normal. Delta troponin negative. C-reactive protein 10.6. Procalcitonin 0.09. Patient does endorse drinking alcohol daily 3 beers a night but answered 0 on CAGE questionnaire. He does not have a primary care doctor and does not follow-up with anybody. He has not been hospitalized in the recent few years. When seen by medical hospitalist he was in room 112 bed to sitting up in bed with nonlabored breathing saturating above 90% on 2 L. Appearing very comfortable and looking well. He had no complaints at this time was no longer shortness of breath or any chest pain. He denies having COPD or ever having a COPD exacerbation before. Course Pt was treated for COPD exacerbation and improved. He was sent home on spirva, albuterol, symbicort and 5L O2 as his new baseline. CT showed emphysema. Patient was setup with pulmnology f/u as outpatient for PFT and further management. COVID was negative. Echo normal.Pt was also encouraged to quit smoking. He agreed for that. He was sent home on nicotine patches. Alpha 1 antitripsin level was drawn, EPO level was checked. Patient to follow with pulm Physical Exam Narrative: EXAM NARRATIVE: General: Alert oriented x3, patient seen sitting up in bed on 5 L nasal cannula not in acute distress. HEENT: Normocephalic, atraumatic, EOMI, Cardio: Regular rate rhythm, normal S1-S2, no murmurs rubs gallops, Respiratory: Diminished bilateral air entry, wheezes and rhonchi present throughout lung li. GI: Abdomen soft, nontender, nondistended, bowel sounds + Behavior: Appropriate and cooperative Extremities: Pulses 2+, no edema, no cyanosis Discharge Data Data Completed and Pending: Completed Studies During Hospitalization Category Date Time Status CT angio chest PE protcl [id number] Urge nt Cat Scan 03/31/21 14:25 Completed XR chest 1V alexandra ble [id number] Routine Exams 04/01/21 08:00 Completed XR chest 1V alexandra ble [id number] Urgent Exams 03/31/21 10:51 Completed XR chest 1V alexandra ble [id number] Urgent Exams 04/02/21 10:02 Completed CV. echo complete * [id number] Routine Ultrasound 04/02/21 05:00 Completed Pending at discharge Category Date Time Status Alpha 1 Antitryps in Routine Lab 04/02/21 16:16 Ordered Erythropoietin Ro utine Lab 04/02/21 16:16 Ordered Sputum Culture an d Gram Stain Fabrice ne Lab 04/01/21 10:59 Uncollected Labs from last 24 hours 04/02/21 04/02/21 04/02/21 11:14 04:50 04:50 WBC 11.7 H RBC 5.24 Hgb 18.5 H Hct 54.8 H MCV 104.6 H MCH 35.3 H MCHC 33.8 RDW 11.8 L Plt Count 216 MPV 8.7 Neut % (Auto) 95.2 Lymph % (Auto) 2.9 [place] % (Auto) 1.4 Eos % (Auto) 0.1 Baso % (Auto) 0.1 Neut # (Auto) 11.17 H Lymph # (Auto) 0.3 L [place] # (Auto) 0.2 Eos # (Auto) 0.0 Baso # (Auto) 0.0 Nucleated RBC % (a uto) 0 Nucleated RBCs # 0.0 Specimen Type Arterial Sample Site Radial, right ABG pH 7.41 ABG pCO2 49.9 H ABG pO2 53.7 L ABG HCO3 31.6 H ABG O2 Saturation 88.7 ABG Base Excess 5.3 H Jamil Test Pos A-a O2 Gradient 21.9 H Hematocrit 57.2 H Hgb O2 Saturation 87.2 L Carboxyhemoglobin 1.1 Methemoglobin 0.6 Total Hemoglobin 18.7 H Ionized Calcium 1.2 O2 Delivery Device Nc O2 Liters/Min 5.0 FiO2 40.0 Sail Repair Person ID [email or web address] Sodium 139.0 135 L Potassium 4.2 4.7 Chloride 98 Carbon Dioxide 32 H Anion Gap 9.7 BUN 11 Creatinine 0.6 L GFR Calculation 140.9 H Glucose 148.0 H 135 H Calculated Osmolal ity 281 L Calcium 9.3 Nasal/Oral COVID-1 9 PCR 03/31/21 18:49 WBC RBC Hgb Hct MCV MCH MCHC RDW Plt Count MPV Neut % (Auto) Lymph % (Auto) [place] % (Auto) Eos % (Auto) Baso % (Auto) Neut # (Auto) Lymph # (Auto) [place] # (Auto) Eos # (Auto) Baso # (Auto) Nucleated RBC % (a uto) Nucleated RBCs # Specimen Type Sample Site ABG pH ABG pCO2 ABG pO2 ABG HCO3 ABG O2 Saturation ABG Base Excess Jamil Test A-a O2 Gradient Hematocrit Hgb O2 Saturation Carboxyhemoglobin Methemoglobin Total Hemoglobin Ionized Calcium O2 Delivery Device O2 Liters/Min FiO2 Sail Repair Person ID Sodium Potassium Chloride Carbon Dioxide Anion Gap BUN Creatinine GFR Calculation Glucose Calculated Osmolal ity Calcium Nasal/Oral COVID-1 9 PCR Not detected Vitals: Last Vital Signs Temp 98.0 F 04/02/21 11:15 Pulse 99 04/02/21 15:55 Resp 22 H 04/02/21 15:48 BP 105/56 04/02/21 11:15 Pulse Ox 87 L 04/02/21 15:51 Discharge Plan Discharge Patient Disposition: Home Condition: Fair Prescriptions: New folic acid 1 mg Tablet 1 mg PO DAILY 30 Days Qty: 30 RF: 0 Vitamin B-1 (mononitrate) 100 mg Tablet 100 mg PO DAILY 30 Days Qty: 30 RF: 0 prednisone 10 mg tablet 10 mg PO DAILY 15 Days Qty: 35 RF: 0 albuterol sulfate 90 mcg/actuation HFA aerosol inhaler 2 inh inhalation Q4H PRN (Reason: shortness of breath or wheezing) 30 Days Qty: 8.5 RF: 2 Symbicort 160-4.5 mcg/actuation HFA aerosol inhaler 2 inh inhalation BID 30 Days Qty: 10.2 RF: 2 Spiriva Respimat 2.5 mcg/actuation mist 2 inh inhalation DAILY 30 Days Qty: 4 RF: 2 nicotine 21 mg/24 hr patch 24 hour 1 patch transdermal DAILY 30 Days Qty: 28 RF: 0 Discontinued aspirin 325 mg Tablet 650 mg PO Q6H PRN (Reason: Headache) RF: 0 Discharge Orders: Discharge Order (Routine); Ordered 04/02/21 Ordered By: Linn England Other Ambulatory Orders: DME: Oxygen (Order) Location: None Selected Ordered By: Linn England Referrals: Kamran Copeland MD [Physician] - 04/07/21 9:00 am (You have an appointment with Dr. Copeland on April 07 at 9:00am if you can not keep this appointment please contact providers office to arrange your follow up care. New dx of emphysema) Raúl Herzog DO [Physician] - 04/08/21 11:15 am (You have a new patient appointment for you follow up care with Aleksandra Holder on at 11:15 If you are unable to keep this appointment please contact [facility] to arrange you follow up care.) Discharge Diet: Regular Discharge Activity: Increase activity as tolerated and Oxygen as instructed Patient Instructions: Opioid Safety Discharge Attestations Time Spent in Discharge Care*: less than 30 min Quality Metrics Clinical Quality Measures During this hospital stay, did patient experience: None Coding Level of Care Code Acute [facility] note Diagnoses COPD exacerbation J44.1 Hypoxia R09.02 Polycythemia D75.1 Alcohol use Z72.89 Nicotine dependence F17.200
[2021-04-07 11:52] LABS: Alpha 1 Antitrypsin 116 mg/dL (83-199)
[2021-04-07 15:12] LABS: Erythropoietin 5.8 mIU/mL (2.6-18.5)
== END 2021-04-02 17:39 | disposition home or self-care (01) ==
LOC: ER 15:51 → CSU 04-01 06:03
PROVIDERS: Emergency Medicine; Admitting Provider Internal Medicine; Emergency Provider Physician Assistant; Visit Provider Internal Medicine
DX: J44.1 Chronic obstructive pulmonary disease with (acute) exacerbation (principal); R09.02 Hypoxemia; D75.1 Secondary polycythemia; F17.200 Nicotine dependence, unspecified, uncomplicated; R00.0 Tachycardia, unspecified; Z79.82 Long term (current) use of aspirin; Z72.89 Other problems related to lifestyle
CPT/HCPCS: 36415; 36600; 71045; 71275; 80048; 80051; 80053; 80061; 82103; 82330; 82668; 82728; 82805; 83036; 83605; 83880; 84145; 84484; 85025; 85378; 86140; 87426; 87635; 93005; 93306; 94640; 94664; 96361; 96365; 96372; 96375; 96376; 99285; G0378; J0456; J1644; J2920; J3490; J7030; J7040; J7050; J7614; J7644; Q0144; Q9967

== ENCOUNTER → 2021-05-02 11:17 | Outpatient (BNVA) | payer OTHER, SELFPAY | PROVIDERS: PCP Internal Medicine; Visit Provider Internal Medicine Critical Care Medicine | DX: Z01.812 Encounter for preprocedural laboratory examination (principal); Z20.822 Contact with and (suspected) exposure to COVID-19 | CPT/HCPCS: 87635 ==

== ENCOUNTER 2021-05-08 08:34 | Outpatient (CLI) | payer OTHER, SELFPAY ==
--- NOTE | 2021-05-08 11:02 | PFTS_ITS ---
Date of Study:05/08/21 Date of Dictation: 05/13/2021 MECHANICS: Postbronchodilator forced vital capacity (FVC) is reduced Postbronchodilator forced expiratory volume in one second (FEV1) is severely reduced 37 %. FEV1/FVC is reduced. There is significant response to bronchodilators FLOW VOLUME LOOP: Severe sloping of expiratory limb suggestive of severe airway obstruction . LUNG VOLUMES: Total lung capacity (TLC) is normal. Residual volume (RV) is increased suggestive of severe air trapping. DIFFUSING CAPACITY FOR CARBON MONOXIDE: Normal. . INTERPRETATION: The postbronchodilator spirometry is consistent with severe obstructive ventilatory disease with severe air trapping on lung volumes. There is significant response to bronchodilators. Surprisingly gas transfer is normal to the amount of obstruction.Overall constellation of findings on this PFT are consistent with reversible obstructive ventilatory disease entities like asthma, there is a possibility it can be emphysema and coexisting pulmonary vascular disease. Clinical correlation is strongly recommended. MTDD
== END 2021-05-08 08:35 | disposition home or self-care (01) ==
LOC: RT 08:37
PROVIDERS: PCP Internal Medicine; Visit Provider Internal Medicine Critical Care Medicine
DX: J44.9 Chronic obstructive pulmonary disease, unspecified (principal)
CPT/HCPCS: 94060; 94726; 94729

== ENCOUNTER 2021-05-15 09:31 | Outpatient (CLI) | payer OTHER, SELFPAY ==
[2021-05-15 09:52] LABS: Basophils % 0.4 %; Eosinophils # 0.3 10^3/uL (0.0-0.8); Eosinophils % 5.8 %; Hematocrit 45.3 % (42.0-52.0); Hemoglobin 15.8 g/dL (11.7-16.6); Lymphocytes # 1.2 10^3/uL (0.8-4.8); Lymphocytes % 22.1 %; Mean Corpuscular HGB Conc 34.9 g/dL (30.0-36.0); Mean Corpuscular Hemoglobin 35.2 pg (28.0-34.0); Mean Corpuscular Volume 100.9 fl (80-94); Mean Platelet Volume 8.6 fL (7.4-10.4); Monocytes # 0.6 10^3/uL (0.2-0.9); Neutrophils # 3.17 10^3/uL (1.8-7.7); Neutrophils % 59.5 %; Nucleated Red Blood Cells % 0 %; Platelet Count 177 10^3/cmm (130-400); Red Blood Count 4.49 10^6/uL (4.1-5.3); Red Cell Distribution Width 11.9 % (12.1-15.1); White Blood Count 5.3 10^3/uL (4.0-10.0)
== END 2021-05-15 09:32 | disposition home or self-care (01) ==
LOC: LAB 09:35
PROVIDERS: PCP Internal Medicine; Visit Provider Internal Medicine Critical Care Medicine
DX: J96.11 Chronic respiratory failure with hypoxia (principal); J96.12 Chronic respiratory failure with hypercapnia
CPT/HCPCS: 85025

== ENCOUNTER 2021-05-15 11:00 | Outpatient (CLI) | payer OTHER, SELFPAY | END 2021-05-15 11:01 | disposition home or self-care (01) | LOC: SLEEP 05-20 11:53 | PROVIDERS: PCP Internal Medicine; Visit Provider Internal Medicine Critical Care Medicine | DX: J96.11 Chronic respiratory failure with hypoxia (principal); J96.12 Chronic respiratory failure with hypercapnia | CPT/HCPCS: 94762 ==

== ENCOUNTER 2022-06-10 08:49 | Outpatient (CLI) | payer OTHER, SELFPAY ==
--- NOTE | 2022-06-10 09:00 | CT_ITS ---
WS: [id number] LDCT LUNG CANCER SCREENING TECHNIQUE: Noncontrast CT of the chest with coronal and sagittal reformatted images. CLINICAL INFORMATION: Lung cancer screening COMPARISON: CTA chest March 31, 2021 DLP: 78.49 mGy.cm DIvol: Mean CTDIvol: 1.60 (mGy) All CT scans at [facility] use at least one of these dose optimization techniques: automat ed exposure control; mA and/or kV adjustment per patient size (includes targeted exams where dose is matched to clinical indication); or iterative reconstruction. FINDINGS:Spiculated lesion in the LEFT anterior cardiophrenic angle measuring 11 mm. This is new or p rogressed since March 11, 2021. Recommend further evaluation with PET/CT and [address] follo w-up. Fibrosis in the RIGHT middle lobe. Normal caliber thoracic aorta. No mediastinal or hilar lymphadenopathy. No axillary lymphadenopathy. Normal GE junction. Normal thoracic spine. Calcified granuloma LEFT lower lobe. CT/CT lung screening [id number] IMPRESSION: LUNG-RADS: 4A-Probably Suspicious FOLLOW UP: PET/CT recommended
== END 2022-06-10 08:50 | disposition home or self-care (01) ==
PROVIDERS: PCP Physician Assistant; Visit Provider Internal Medicine Critical Care Medicine
DX: Z12.2 Encounter for screening for malignant neoplasm of respiratory organs (principal); Z87.891 Personal history of nicotine dependence
CPT/HCPCS: 71271

== ENCOUNTER 2022-06-27 08:15 | Outpatient (CLI) | payer OTHER, SELFPAY ==
--- NOTE | 2022-06-27 08:30 | PETR_ITS ---
PROCEDURE INFORMATION: Exam: PET/CT Skull Base to Mid-thigh Exam date and time: 06/27/2022 9:14 AM Age: 56 years old Clinical indication: Abnormal findings; Spiculated lung nodule lrads 4a, 06/10/22 left anterior cardiophrenic angle; Patient HX: [id number] history of smoking and he quit smoking approximately 9 months ago. ; Additional info: Spiculated lung nodule lrads 4a, 06/10/22 CT lung: LABS AND CLINICAL REPORTS: Glucose: 103 mg/dl Treatment strategy for malignancy (PET staging): Initial Staging (PI) TECHNIQUE: Imaging protocol: Following at least four-hour fasting and following the injection of F-18-FDG, low dose CT images were obtained. Then, PET images were obtained. Attenuation corrected images were constructed using the CT scan. Fused images of PET and CT were reviewed. The standardized uptake values (SUV) reported below are maximum values within a region of interest, expressed in gm/ml. Exam includes orbital meatal line to mid-thigh. Radiopharmaceutical: 13.06 mCi F-18 FDG (Fluorodeoxyglucose), IV. Time of imaging post radiopharmaceutical administration: 1 hour Injection site: Left AC COMPARISON: CT lung screening [id number] 06/10/2022 9:03 AM FINDINGS: Brain: Visualized brain has normal physiologic uptake. Pharynx: No abnormal uptake. Larynx: No abnormal uptake. Lungs, pleura and trachea: No abnormal uptake. Left lower lobe calcified granuloma. Small opacity in the lingula is less conspicuous than prior and likely reflects atelectasis or scarring. There is no associated FDG uptake. Heart: Normal physiologic uptake. Mediastinal space: No abnormal uptake. Liver: No abnormal uptake. Gallbladder and bile ducts: No abnormal uptake. Pancreas: No abnormal uptake. Spleen: No abnormal uptake. Adrenal glands: No abnormal uptake. Kidneys and ureters: Normal physiologic uptake. Stomach and bowel: No abnormal uptake. Vasculature: No abnormal uptake. Lymph nodes: No abnormal uptake. No lymphadenopathy in the head, neck, chest, abdomen, pelvis, and extremities. Bones/joints: No abnormal uptake in the visualized axial and appendicular skeleton. Soft tissues: No abnormal uptake in the visualized head, neck, chest, abdomen, pelvis, and extremities. PET/PET skulltothigh INITIAL [id number] IMPRESSION: No abnormal radiotracer uptake. Small opacity in the lingula is less conspicuous than prior and likely reflects atelectasis or scarring.
== END 2022-06-27 08:16 | disposition home or self-care (01) ==
LOC: RAD 06-29 06:07
PROVIDERS: PCP Physician Assistant; Visit Provider Internal Medicine Pulmonary Disease
DX: R91.1 Solitary pulmonary nodule (principal)
CPT/HCPCS: 78815; A9552

== ENCOUNTER 2023-11-22 08:32 | Outpatient (CLI) | payer BC, MEDICAID, SELFPAY ==
--- NOTE | 2023-11-22 08:38 | CT_ITS ---
WS: [id number] LDCT LUNG CANCER SCREENING HISTORY: NICOTINE DEPENDENCE,CIGARETTES TECHNIQUE: Axial imaging performed from the apices to 1 cm below the costophrenic angles. Coronal and sagittal reformats are submitted with axial MIP series. All CT scans at [facility] use at least one of these dose optimization techniques: automated exposure control; mA and/or kV adjustment per patient size (includes targeted exams where dose is matched to clinical indication); or iterativ e reconstruction. DLP: 59.59 mGy.cm DIvol: Mean CTDIvol: 1.00 (mGy) COMPARISON: 06/10/2022, PET/CT 06/27/2022 Diagnostic quality: Satisfactory Lungs: Benign granuloma LEFT lower lobe. RIGHT middle lobe and lingular scarring is unchanged and neg ative on recent PET/CT. No new pulmonary mass or enlarging nodule. No pneumonia. Heart: Normal size heart with no pericardial effusion.. Other findings: Atherosclerosis aorta. Small mediastinal and hilar lymph nodes are similar to prior s tudy. Atherosclerosis aorta is mild. Normal size heart. Hepatic steatosis. No adrenal mass. Mild thor acic spondylosis. CT/CT lung screening [id number] IMPRESSION: LUNG-RADS: 1-Negative FOLLOW UP: 12 Month: Continue annual screening with LDCT OTHER FINDINGS (S MODIFIER): None.
== END 2023-11-22 08:33 | disposition home or self-care (01) ==
LOC: RAD 08:32
PROVIDERS: PCP Physician Assistant; Visit Provider Physician Assistant
DX: F17.210 Nicotine dependence, cigarettes, uncomplicated (principal); J84.10 Pulmonary fibrosis, unspecified; K76.0 Fatty (change of) liver, not elsewhere classified
CPT/HCPCS: 71271

== ENCOUNTER 2024-06-20 13:39 | Outpatient (CLI) | payer BC, MEDICAID, SELFPAY ==
[2024-06-20 13:53] VITALS: PULSE 124; RESP 18; O2SAT 93
[2024-06-20] MEDS: albuterol 2.5 mg/3 mL Neb INHALATION (13:53)
[2024-06-20 13:57] VITALS: PULSE 123
== END 2024-06-20 13:40 | disposition home or self-care (01) ==
LOC: RT 13:40
PROVIDERS: PCP Physician Assistant; Visit Provider Physician Assistant
DX: J44.9 Chronic obstructive pulmonary disease, unspecified (principal)
CPT/HCPCS: 94060; 94726; 94729; J7613

== ENCOUNTER 2024-07-03 08:45 | Oncology outpatient (recurring) (ONCR) | payer BC, MEDICAID, SELFPAY ==
[2024-06-27 08:58] VITALS: BP 121/76; PULSE 98; RESP 16; TEMP 36.6; O2SAT 94
--- NOTE | 2024-07-03 08:45 | MR_ITS ---
WS: [id number] MRI ABDOMEN WITH AND WITHOUT CONTRAST. COMPARISON: No similar studies. Prior liver ultrasound 11/23/2023 Multiplanar, multisequence imaging is performed with and without contrast. MultiHance 16 mL IV. Normal size liver measuring 16 cm in length. On the T2 weighted sequence and the in phase gradient ec ho sequence there is marked decreased signal and hypointense appearance of the entire liver. This is most indicative of hemachromatosis. 7 mm cyst superior medial LEFT lobe of the liver. No additional c yst or mass is identified. There is no intrahepatic duct dilatation. On the dynamic postcontrast imaging through the liver there are no areas of abnormal enhancement. Gallbladder is normal. No adrenal mass. Spleen is normal size and signal. No renal obstruction or [place] id mass. 9 mm cyst superior medial LEFT kidney. Normal pancreas. No ascites or adenopathy. No pleural effusions. As visualized the heart is normal. Normal abdominal aorta. MR/MR abdomen wo/w con* [id number] IMPRESSION: 1. Marked loss of signal on the T2 sequences and in phase gradient echo sequen ce throughout the liver. This is most indicative of hemachromatosis. 2. No corresponding findings of signal loss within the spleen. 3. No ascites or adenopathy. 4. Subcentimeter hepatic and LEFT renal cysts.
[2024-07-03] MEDS: gadobenate dimeglumine 20 mL vial IV (09:30)
== END 2024-07-07 23:59 | disposition home or self-care (01) ==
LOC: RAD 07-04 → ONCMED 07-06 09:37
PROVIDERS: PCP Physician Assistant; Visit Provider Internal Medicine Medical Oncology
DX: E83.110 Hereditary hemochromatosis (principal); D75.1 Secondary polycythemia; N28.1 Cyst of kidney, acquired
CPT/HCPCS: 74183; 99195

== ENCOUNTER 2024-07-17 14:21 | Outpatient (CLI) | payer BC, MEDICAID, SELFPAY ==
--- NOTE | 2024-07-17 14:30 | USCV_ITS ---
Bryant Hooks Age: 58 Gender: M : 1965 Exam Date: 07/17/2024 15:18 Ordering Phys: Aleksandra Holder Technologist: CT [place] [facility] [place]: BP: 125 / 83 HR: 84 Rhythm: Sinus Technical Quality: Adequate MEASUREMENTS (Male / Female) Normal Values 2D ECHO LVOT Diameter 2.1 cm LV Ejection Fraction MOD 4C 61.0 % LV Ejection Fraction MOD 2C 66.1 % LV Ejection Fraction 2C AL 66.5 % LA Diameter 3.4 cm RA Systolic Volume 4C AL 39.1 ml RA Systolic Volume 4C MOD 37.3 ml LA Sys Volume AL 33.9 cm cubed LA Sys Volume Index AL 18.1 cm cubed/m squared Aorta at Sinotubular Diameter 2.2 cm IVC Diameter 1.7 cm M-MODE LA Ao Ratio MM 1.2 AV Cusp Separation MM 1.6 cm DOPPLER AV Peak Velocity 122.0 cm/s LVOT Peak Velocity 87.0 cm/s AV Area Cont Eq vti 2.6 cm squared AV Area Cont Eq pk 2.4 cm squared MV Peak Velocity 85.0 cm/s MV Area PHT 5.0 cm squared Mitral E to A Ratio 0.9 TR Peak Velocity 183.0 cm/s TR Peak Gradient 13.4 mmHg TV Peak E Velocity 75.0 cm/s PV Peak Velocity 88.0 cm/s FINDINGS Left Ventricle Normal left ventricular size and systolic function, EF 66% . Mild hypokinesia of the basal inferior wall segment. Grade I/IV diastolic dysfunction (abnormal relaxation filling pattern), normal to mildly elevated filling pressures. Right Ventricle The right ventricle is normal in size and function. Right Atrium The right atrium is normal in size. Left Atrium The left atrium is normal in size. Mitral Valve No gross abnormalities noted Aortic Valve Thickened aortic valve. Tricuspid Valve Trace tricuspid valve regurgitation. Pulmonic Valve Pulmonic valve not well visualized. Pericardium Normal pericardium without effusion. Aorta Normal aortic annulus size. IVC Normal inferior vena cava. CONCLUSIONS Normal left ventricular size and systolic function, EF 66% . Mild hypokinesia of the basal inferior wall segment. Grade I/IV diastolic dysfunction (abnormal relaxation filling pattern), normal to mildly elevated filling pressures. Thickened aortic valve. Trace tricuspid valve regurgitation. Because of poor Doppler signal, the PA pressure could not be estimated There is no pericardial effusion. Compared to the study from 04/02/2021, there may not be a significant change Dr Tu Montoya MD [facility] (Electronically Signed) Final Date: 18 July 2024 08:54 S
== END 2024-07-17 14:22 | disposition home or self-care (01) ==
PROVIDERS: PCP Physician Assistant; Visit Provider Physician Assistant
DX: E83.110 Hereditary hemochromatosis (principal); R93.1 Abnormal findings on diagnostic imaging of heart and coronary circulation; I35.8 Other nonrheumatic aortic valve disorders
CPT/HCPCS: 93306

== ENCOUNTER 2024-07-25 08:30 | Oncology outpatient (recurring) (ONCR) | payer BC, MEDICAID, SELFPAY ==
[2024-07-11 08:57] LABS: Basophils % 0.4 %; Eosinophils # 0.2 10^3/uL (0.0-0.8); Eosinophils % 3.3 %; Hematocrit 43.2 % (37-53); Lymphocytes # 0.9 10^3/uL (0.8-4.8); Lymphocytes % 17.7 %; Mean Corpuscular HGB Conc 35.2 g/dL (30-55); Mean Corpuscular Hemoglobin 37.7 pg (27-33); Mean Corpuscular Volume 107.2 fl (82-101); Mean Platelet Volume 8.5 fL (7.4-10.4); Monocytes # 0.9 10^3/uL (0.2-0.9); Monocytes % 18.3 %; Neutrophils # 2.88 10^3/uL (1.8-7.7); Neutrophils % 60.1 %; Nucleated Red Blood Cells % 0 %; Platelet Count 203 10^3/cmm (157-399); Red Blood Count 4.03 10^6/uL (3.85-5.65); Red Cell Distribution Width 11.8 % (12.1-15.1)
[2024-07-11 09:42] LABS: Ferritin 1163 ng/mL (30-400)
[2024-07-11 10:30] VITALS: BP 107/72; PULSE 106
[2024-07-25 08:17] LABS: Basophils % 0.3 %; Eosinophils # 0.4 10^3/uL (0.0-0.8); Hematocrit 44.4 % (37-53); Lymphocytes % 14.1 %; Mean Corpuscular HGB Conc 34.7 g/dL (30-55); Mean Corpuscular Hemoglobin 37.8 pg (27-33); Mean Corpuscular Volume 109.1 fl (82-101); Mean Platelet Volume 8.9 fL (7.4-10.4); Monocytes # 0.9 10^3/uL (0.2-0.9); Monocytes % 13.1 %; Neutrophils # 4.73 10^3/uL (1.8-7.7); Neutrophils % 67.2 %; Nucleated Red Blood Cells % 0 %; Platelet Count 158 10^3/cmm (157-399); Red Blood Count 4.07 10^6/uL (3.85-5.65); Red Cell Distribution Width 12.1 % (12.1-15.1); White Blood Count 7.03 10^3/uL (3.29-11.43)
[2024-07-25 08:32] LABS: Ferritin 783 ng/mL (30-400)
== END 2024-08-04 23:59 | disposition home or self-care (01) ==
PROVIDERS: PCP Physician Assistant; Visit Provider Internal Medicine Medical Oncology
DX: E83.110 Hereditary hemochromatosis; Z79.899 Other long term (current) drug therapy; Z53.9 Procedure and treatment not carried out, unspecified reason
CPT/HCPCS: 36415; 82728; 85025; 99195

== ENCOUNTER 2024-08-16 08:19 | Outpatient (CLI) | payer OTHER, SELFPAY ==
[2024-08-16 08:36] VITALS: PULSE 111; RESP 18; O2SAT 94
[2024-08-16] MEDS: albuterol 2.5 mg/3 mL Neb INHALATION (08:36)
[2024-08-16 08:41] VITALS: PULSE 109
== END 2024-08-16 08:20 | disposition home or self-care (01) ==
LOC: RT 08:20
PROVIDERS: PCP Physician Assistant; Visit Provider Orthopaedic Surgery
DX: J44.9 Chronic obstructive pulmonary disease, unspecified (principal)
CPT/HCPCS: 94060; 94729; J7613

== ENCOUNTER 2024-08-22 08:30 | Oncology outpatient (recurring) (ONCR) | payer BC, MEDICAID, SELFPAY ==
[2024-08-08 08:37] LABS: Basophils % 0.3 %; Eosinophils # 0.2 10^3/uL (0.0-0.8); Eosinophils % 3.4 %; Hematocrit 43.3 % (37-53); Lymphocytes # 0.9 10^3/uL (0.8-4.8); Lymphocytes % 13.6 %; Mean Corpuscular HGB Conc 34.4 g/dL (30-55); Mean Corpuscular Hemoglobin 37.4 pg (27-33); Mean Corpuscular Volume 108.8 fl (82-101); Mean Platelet Volume 8.6 fL (7.4-10.4); Monocytes # 0.8 10^3/uL (0.2-0.9); Monocytes % 11.5 %; Neutrophils # 4.75 10^3/uL (1.8-7.7); Neutrophils % 71.1 %; Nucleated Red Blood Cells % 0 %; Platelet Count 177 10^3/cmm (157-399); Red Blood Count 3.98 10^6/uL (3.85-5.65); Red Cell Distribution Width 12.2 % (12.1-15.1); White Blood Count 6.69 10^3/uL (3.29-11.43)
[2024-08-08 08:53] LABS: Ferritin 772 ng/mL (30-400)
[2024-08-08 09:25] VITALS: BP 109/82; PULSE 114; TEMP 37.1
[2024-08-22 08:54] LABS: Basophils % 0.2 %; Eosinophils # 0.3 10^3/uL (0.0-0.8); Eosinophils % 6.1 %; Hematocrit 45.9 % (37-53); Lymphocytes # 0.8 10^3/uL (0.8-4.8); Lymphocytes % 17.2 %; Mean Corpuscular HGB Conc 34.2 g/dL (30-55); Mean Corpuscular Hemoglobin 36.7 pg (27-33); Mean Corpuscular Volume 107.2 fl (82-101); Mean Platelet Volume 8.7 fL (7.4-10.4); Monocytes # 0.7 10^3/uL (0.2-0.9); Monocytes % 13.3 %; Neutrophils # 3.07 10^3/uL (1.8-7.7); Nucleated Red Blood Cells % 0 %; Platelet Count 177 10^3/cmm (157-399); Red Blood Count 4.28 10^6/uL (3.85-5.65); Red Cell Distribution Width 12.4 % (12.1-15.1); White Blood Count 4.88 10^3/uL (3.29-11.43)
[2024-08-22 09:15] LABS: Ferritin 598 ng/mL (30-400)
== END 2024-09-04 23:59 | disposition home or self-care (01) ==
PROVIDERS: PCP Physician Assistant; Visit Provider Internal Medicine Medical Oncology
DX: Z53.9 Procedure and treatment not carried out, unspecified reason; E83.110 Hereditary hemochromatosis
CPT/HCPCS: 82728; 85025; 99195

== ENCOUNTER 2024-10-03 08:00 | Oncology outpatient (recurring) (ONCR) | payer BC, MEDICAID, SELFPAY ==
[2024-09-05 08:50] VITALS: BP 114/78; PULSE 71; RESP 16; TEMP 37; O2SAT 100
[2024-09-05 08:59] LABS: Basophils % 0.3 %; Eosinophils # 0.2 10^3/uL (0.0-0.8); Eosinophils % 2.7 %; Lymphocytes # 0.9 10^3/uL (0.8-4.8); Lymphocytes % 10.9 %; Mean Corpuscular HGB Conc 34.8 g/dL (30-55); Mean Corpuscular Hemoglobin 37.3 pg (27-33); Mean Corpuscular Volume 107.2 fl (82-101); Mean Platelet Volume 8.7 fL (7.4-10.4); Monocytes # 0.9 10^3/uL (0.2-0.9); Monocytes % 10.9 %; Neutrophils # 5.81 10^3/uL (1.8-7.7); Neutrophils % 74.8 %; Nucleated Red Blood Cells % 0 %; Platelet Count 169 10^3/cmm (157-399); Red Blood Count 4.29 10^6/uL (3.85-5.65); Red Cell Distribution Width 12.2 % (12.1-15.1); White Blood Count 7.77 10^3/uL (3.29-11.43)
[2024-09-05 09:03] LABS: Ferritin 491 ng/mL (30-400)
[2024-09-05 09:57] VITALS: BP 116/79; PULSE 86; RESP 16; TEMP 36.8; O2SAT 97
[2024-09-19 08:24] LABS: Basophils % 0.4 %; Eosinophils # 0.4 10^3/uL (0.0-0.8); Eosinophils % 6.1 %; Hematocrit 44.7 % (37-53); Lymphocytes % 14.3 %; Mean Corpuscular HGB Conc 35.1 g/dL (30-55); Mean Corpuscular Hemoglobin 38.1 pg (27-33); Mean Corpuscular Volume 108.5 fl (82-101); Mean Platelet Volume 8.6 fL (7.4-10.4); Monocytes # 0.9 10^3/uL (0.2-0.9); Neutrophils # 4.55 10^3/uL (1.8-7.7); Neutrophils % 65.9 %; Nucleated Red Blood Cells % 0 %; Platelet Count 168 10^3/cmm (157-399); Red Blood Count 4.12 10^6/uL (3.85-5.65); White Blood Count 6.91 10^3/uL (3.29-11.43)
[2024-09-19 08:49] LABS: Ferritin 657 ng/mL (30-400)
[2024-09-19 09:48] VITALS: BP 108/78; PULSE 103
[2024-10-03 07:52] LABS: Basophils % 0.6 %; Eosinophils # 0.4 10^3/uL (0.0-0.8); Eosinophils % 8.6 %; Hematocrit 43.5 % (37-53); Lymphocytes # 0.9 10^3/uL (0.8-4.8); Lymphocytes % 18.7 %; Mean Corpuscular HGB Conc 35.2 g/dL (30-55); Mean Corpuscular Hemoglobin 37.8 pg (27-33); Mean Corpuscular Volume 107.4 fl (82-101); Mean Platelet Volume 8.4 fL (7.4-10.4); Monocytes # 0.7 10^3/uL (0.2-0.9); Monocytes % 13.5 %; Neutrophils # 2.93 10^3/uL (1.8-7.7); Neutrophils % 58.4 %; Nucleated Red Blood Cells % 0 %; Platelet Count 159 10^3/cmm (157-399); Red Blood Count 4.05 10^6/uL (3.85-5.65); Red Cell Distribution Width 12.1 % (12.1-15.1); White Blood Count 5.02 10^3/uL (3.29-11.43)
[2024-10-03 08:06] LABS: Ferritin 476 ng/mL (30-400)
[2024-10-03 08:48] VITALS: BP 107/71; PULSE 97; RESP 16; TEMP 36.5; O2SAT 94
== END 2024-10-04 23:59 | disposition home or self-care (01) ==
PROVIDERS: PCP Physician Assistant; Visit Provider Internal Medicine Medical Oncology
DX: Z53.9 Procedure and treatment not carried out, unspecified reason; E83.110 Hereditary hemochromatosis
CPT/HCPCS: 36415; 82728; 85025; 99195

== ENCOUNTER 2024-10-31 08:00 | Oncology outpatient (recurring) (ONCR) | payer BC, MEDICAID, SELFPAY ==
[2024-10-17 08:09] LABS: Basophils % 0.4 %; Eosinophils # 0.5 10^3/uL (0.0-0.8); Eosinophils % 8.1 %; Hematocrit 42.4 % (37-53); Lymphocytes % 17.5 %; Mean Corpuscular HGB Conc 34.2 g/dL (30-55); Mean Corpuscular Hemoglobin 37.3 pg (27-33); Mean Platelet Volume 8.9 fL (7.4-10.4); Monocytes # 0.7 10^3/uL (0.2-0.9); Neutrophils # 3.47 10^3/uL (1.8-7.7); Neutrophils % 60.6 %; Nucleated Red Blood Cells % 0 %; Platelet Count 158 10^3/cmm (157-399); Red Blood Count 3.89 10^6/uL (3.85-5.65); Red Cell Distribution Width 11.9 % (12.1-15.1); White Blood Count 5.71 10^3/uL (3.29-11.43)
[2024-10-17 08:25] LABS: Ferritin 398 ng/mL (30-400)
[2024-10-17 11:45] VITALS: BP 117/78; PULSE 56; RESP 16; TEMP 36.7; O2SAT 94
[2024-10-31 08:13] LABS: Basophils % 0.4 %; Eosinophils # 0.4 10^3/uL (0.0-0.8); Eosinophils % 7.9 %; Hematocrit 45.3 % (37-53); Lymphocytes # 1.3 10^3/uL (0.8-4.8); Lymphocytes % 26.5 %; Mean Corpuscular HGB Conc 34.9 g/dL (30-55); Mean Corpuscular Hemoglobin 38.3 pg (27-33); Mean Platelet Volume 8.9 fL (7.4-10.4); Monocytes # 0.7 10^3/uL (0.2-0.9); Neutrophils # 2.39 10^3/uL (1.8-7.7); Nucleated Red Blood Cells % 0 %; Platelet Count 162 10^3/cmm (157-399); Red Blood Count 4.12 10^6/uL (3.85-5.65); Red Cell Distribution Width 12.1 % (12.1-15.1); White Blood Count 4.79 10^3/uL (3.29-11.43)
[2024-10-31 08:33] LABS: Ferritin 463 ng/mL (30-400)
== END 2024-11-04 23:59 | disposition home or self-care (01) ==
PROVIDERS: Internal Medicine Medical Oncology; PCP Physician Assistant; Visit Provider Internal Medicine
DX: Z53.9 Procedure and treatment not carried out, unspecified reason; E83.110 Hereditary hemochromatosis; Z79.899 Other long term (current) drug therapy
CPT/HCPCS: 82728; 85025; 99195

== ENCOUNTER 2024-11-28 07:51 | Oncology outpatient (recurring) (ONCR) | payer BC, MEDICAID, SELFPAY ==
[2024-11-14 12:06] LABS: Basophils % 0.2 %; Eosinophils # 0.3 10^3/uL (0.0-0.8); Eosinophils % 5.9 %; Hematocrit 41.6 % (37-53); Lymphocytes # 0.8 10^3/uL (0.8-4.8); Lymphocytes % 17.5 %; Mean Corpuscular HGB Conc 35.6 g/dL (30-55); Mean Corpuscular Hemoglobin 37.8 pg (27-33); Mean Corpuscular Volume 106.1 fl (82-101); Mean Platelet Volume 8.4 fL (7.4-10.4); Monocytes # 0.6 10^3/uL (0.2-0.9); Monocytes % 12.9 %; Neutrophils % 63.3 %; Nucleated Red Blood Cells % 0 %; Platelet Count 150 10^3/cmm (157-399); Red Blood Count 3.92 10^6/uL (3.85-5.65); White Blood Count 4.58 10^3/uL (3.29-11.43)
[2024-11-14 12:24] LABS: Alanine Aminotransferase 48 U/L (0-41); Albumin Level 4.3 g/dL (3.5-5.2); Alkaline Phosphatase 86 U/L (40-130); Aspartate Amino Transferase 96 U/L (0-40); Blood Urea Nitrogen 8 mg/dL (6-20); C Reactive Protein 4.6 mg/L (0.0-4.9); Calcium 8.7 mg/dL (8.5-10.5); Carbon Dioxide 24 mmol/L (22-29); Chloride 102 mmol/L (98-107); Ferritin 632 ng/mL (30-400); Globulin 2.3 g/dL (1.3-4.6); Glomerular Filtration Rate 116.2 mL/min (90-130); Glucose 84 mg/dL (65-115); Iron 129 ug/dL (59-158); Lactate Dehydrogenase 197 U/L (135-225); Osmolality Calculated 288 mOsm/kg (285-295); Percent Saturation 50.7 % (20-50); Sodium 140 mmol/L (136-145); Total Bilirubin 0.5 mg/dL (0.15-1.2); Total Iron Binding Capacity 254 mcg/dl; Total Protein 6.6 g/dL (6.6-8.7); Unsaturated Iron Binding 125 ug/dL (112-347)
[2024-11-28 08:37] LABS: Basophils % 0.5 %; Eosinophils # 0.2 10^3/uL (0.0-0.8); Eosinophils % 5.6 %; Hematocrit 46.3 % (37-53); Lymphocytes % 22.8 %; Mean Corpuscular HGB Conc 34.8 g/dL (30-55); Mean Corpuscular Hemoglobin 38.7 pg (27-33); Mean Corpuscular Volume 111.3 fl (82-101); Mean Platelet Volume 8.4 fL (7.4-10.4); Monocytes # 0.7 10^3/uL (0.2-0.9); Monocytes % 15.4 %; Neutrophils # 2.38 10^3/uL (1.8-7.7); Neutrophils % 55.5 %; Nucleated Red Blood Cells % 0 %; Platelet Count 167 10^3/cmm (157-399); Red Blood Count 4.16 10^6/uL (3.85-5.65); Red Cell Distribution Width 13.3 % (12.1-15.1); White Blood Count 4.29 10^3/uL (3.29-11.43)
[2024-11-28 09:05] LABS: Ferritin 367 ng/mL (30-400)
== END 2024-12-04 23:59 | disposition home or self-care (01) ==
PROVIDERS: Internal Medicine Medical Oncology; PCP Physician Assistant; Visit Provider Internal Medicine
DX: E83.110 Hereditary hemochromatosis (principal)
CPT/HCPCS: 36415; 80053; 82728; 83540; 83550; 83615; 85025; 86140; 99195

== ENCOUNTER 2024-12-26 08:00 | Oncology outpatient (recurring) (ONCR) | payer BC, MEDICAID, SELFPAY ==
[2024-12-12 08:00] LABS: Hematocrit 44.8 % (37-53); Hemoglobin 15.60 g/dL (11.27-16.99); Mean Corpuscular HGB Conc 34.8 g/dL (30-55); Mean Corpuscular Hemoglobin 38.3 pg (27-33); Mean Corpuscular Volume 110.1 fl (82-101); Nucleated Red Blood Cells % 0 %; Platelet Count 135 10^3/cmm (157-399); Red Blood Count 4.07 10^6/uL (3.85-5.65); White Blood Count 5.20 10^3/uL (3.29-11.43)
[2024-12-12 08:21] LABS: Ferritin 417 ng/mL (30-400)
[2024-12-26 07:36] LABS: Hematocrit 43.6 % (37-53); Hemoglobin 15.40 g/dL (11.27-16.99); Mean Corpuscular HGB Conc 35.3 g/dL (30-55); Mean Corpuscular Hemoglobin 38.8 pg (27-33); Mean Corpuscular Volume 109.8 fl (82-101); Nucleated Red Blood Cells % 0 %; Platelet Count 126 10^3/cmm (157-399); Red Blood Count 3.97 10^6/uL (3.85-5.65); White Blood Count 6.42 10^3/uL (3.29-11.43)
[2024-12-26 07:58] LABS: Ferritin 205 ng/mL (30-400)
[2024-12-26 11:44] VITALS: BP 118/77; PULSE 91; TEMP 37.1; O2SAT 94
== END 2025-01-04 23:59 | disposition home or self-care (01) ==
PROVIDERS: PCP Physician Assistant; Visit Provider Internal Medicine Medical Oncology
DX: E83.110 Hereditary hemochromatosis; Z53.9 Procedure and treatment not carried out, unspecified reason
CPT/HCPCS: 36415; 82728; 85025; 99195

== ENCOUNTER 2025-01-23 07:30 | Oncology outpatient (recurring) (ONCR) | payer BC, MEDICAID, SELFPAY ==
[2025-01-09 08:13] LABS: Hematocrit 43.0 % (37-53); Hemoglobin 14.90 g/dL (11.27-16.99); Mean Corpuscular HGB Conc 34.7 g/dL (30-55); Mean Corpuscular Hemoglobin 37.4 pg (27-33); Mean Corpuscular Volume 108.0 fl (82-101); Nucleated Red Blood Cells % 0 %; Platelet Count 143 10^3/cmm (157-399); Red Blood Count 3.98 10^6/uL (3.85-5.65); White Blood Count 3.82 10^3/uL (3.29-11.43)
[2025-01-09 08:36] LABS: Ferritin 206 ng/mL (30-400)
[2025-01-09 10:07] VITALS: BP 121/81; PULSE 88
[2025-01-23 07:12] LABS: Hematocrit 41.0 % (37-53); Hemoglobin 14.40 g/dL (11.27-16.99); Mean Corpuscular HGB Conc 35.1 g/dL (30-55); Mean Corpuscular Hemoglobin 38.0 pg (27-33); Mean Corpuscular Volume 108.2 fl (82-101); Nucleated Red Blood Cells % 0 %; Platelet Count 142 10^3/cmm (157-399); Red Blood Count 3.79 10^6/uL (3.85-5.65); White Blood Count 6.70 10^3/uL (3.29-11.43)
[2025-01-23 07:34] LABS: Ferritin 151 ng/mL (30-400)
[2025-01-23 09:10] VITALS: BP 113/76; PULSE 97
== END 2025-02-04 23:59 | disposition home or self-care (01) ==
PROVIDERS: PCP Physician Assistant; Visit Provider Internal Medicine Medical Oncology
DX: E83.110 Hereditary hemochromatosis; Z53.9 Procedure and treatment not carried out, unspecified reason
CPT/HCPCS: 36415; 82728; 85025; 99195

== ENCOUNTER 2025-02-20 07:30 | Oncology outpatient (recurring) (ONCR) | payer MEDICAID, SELFPAY ==
[2025-02-06 07:27] LABS: Hematocrit 41.4 % (37-53); Hemoglobin 14.40 g/dL (11.27-16.99); Mean Corpuscular HGB Conc 34.8 g/dL (30-55); Mean Corpuscular Hemoglobin 37.7 pg (27-33); Mean Corpuscular Volume 108.4 fl (82-101); Nucleated Red Blood Cells % 0 %; Platelet Count 150 10^3/cmm (157-399); Red Blood Count 3.82 10^6/uL (3.85-5.65); White Blood Count 6.51 10^3/uL (3.29-11.43)
[2025-02-06 07:45] LABS: Ferritin 120 ng/mL (30-400)
[2025-02-06 08:03] VITALS: BP 110/74; PULSE 89
[2025-02-20 07:31] LABS: Hematocrit 42.0 % (37-53); Hemoglobin 14.20 g/dL (11.27-16.99); Mean Corpuscular HGB Conc 33.8 g/dL (30-55); Mean Corpuscular Hemoglobin 36.7 pg (27-33); Mean Corpuscular Volume 108.5 fl (82-101); Nucleated Red Blood Cells % 0 %; Platelet Count 160 10^3/cmm (157-399); Red Blood Count 3.87 10^6/uL (3.85-5.65); White Blood Count 5.07 10^3/uL (3.29-11.43)
[2025-02-20 07:51] LABS: Ferritin 88 ng/mL (30-400)
[2025-02-20 08:32] VITALS: BP 109/76; PULSE 94
== END 2025-03-06 23:59 | disposition home or self-care (01) ==
PROVIDERS: PCP Physician Assistant; Visit Provider Internal Medicine Medical Oncology
DX: E83.110 Hereditary hemochromatosis; Z53.9 Procedure and treatment not carried out, unspecified reason
CPT/HCPCS: 36415; 82728; 85025; 99195

== ENCOUNTER 2025-02-21 16:47 | Outpatient (CLI) | payer MEDICAID, MEDICARE, SELFPAY ==
--- NOTE | 2025-02-21 17:00 | CT_ITS ---
WS: [id number] LDCT LUNG CANCER SCREENING HISTORY: NICOTINE DEPENDENCE TECHNIQUE: Axial imaging performed from the apices to 1 cm below the costophrenic angles. Coronal and sagittal reformats are submitted with axial MIP series. All CT scans at [facility] use at least one of these dose optimization techniques: automated exposure control; mA and/or kV adjustment per patient size (includes targeted exams where dose is matched to clinical indication); or iterative reconstruction. DLP: 58.91 mGy.cm DIvol: Mean CTDIvol: 1.00 (mGy) COMPARISON: 11/22/2023 Diagnostic quality: Satisfactory Lungs: Lungs are well aerated. Minimal subsegmental atelectasis in the RIGHT middle lobe and lingula. Benign calcified granuloma LEFT lower lobe. No endobronchial lesion. 2 mm micronodule RIGHT upper lobe. Heart: Normal size heart with no pericardial effusion.. Other findings: No mediastinal or hilar adenopathy. Splenic granulomata. CT/CT lung screening [id number] IMPRESSION: LUNG-RADS: 2-Benign Appearance or Behavior FOLLOW UP: 12 Month: Continue annual screening with LDCT OTHER FINDINGS (S MODIFIER): None.
== END 2025-02-21 16:48 | disposition home or self-care (01) ==
LOC: RAD 16:50
PROVIDERS: PCP Physician Assistant; Visit Provider Physician Assistant
DX: F17.200 Nicotine dependence, unspecified, uncomplicated (principal); R91.8 Other nonspecific abnormal finding of lung field
CPT/HCPCS: 71271

== ENCOUNTER 2025-03-19 14:26 | Oncology outpatient (recurring) (ONCR) | payer MEDICARE, MEDICAID, SELFPAY ==
[2025-03-13 07:38] LABS: Hematocrit 39.6 % (37-53); Hemoglobin 13.30 g/dL (11.27-16.99); Mean Corpuscular HGB Conc 33.6 g/dL (30-55); Mean Corpuscular Hemoglobin 34.9 pg (27-33); Mean Corpuscular Volume 103.9 fl (82-101); Nucleated Red Blood Cells % 0 %; Platelet Count 328 10^3/cmm (157-399); Red Blood Count 3.81 10^6/uL (3.85-5.65); White Blood Count 6.67 10^3/uL (3.29-11.43)
[2025-03-13 08:05] LABS: Ferritin 151 ng/mL (30-400)
[2025-03-13 08:31] VITALS: BP 109/74; PULSE 99; TEMP 36.9; O2SAT 95
== END 2025-04-06 23:59 | disposition home or self-care (01) ==
PROVIDERS: PCP Physician Assistant; Visit Provider Internal Medicine Medical Oncology
DX: E83.110 Hereditary hemochromatosis (principal); F17.210 Nicotine dependence, cigarettes, uncomplicated; I82.409 Acute embolism and thrombosis of unspecified deep veins of unspecified lower extremity; F10.90 Alcohol use, unspecified, uncomplicated; Z79.01 Long term (current) use of anticoagulants; Z71.6 Tobacco abuse counseling
CPT/HCPCS: 36415; 82728; 85025; 99195; 99214

== ENCOUNTER 2025-04-09 07:29 | Oncology outpatient (recurring) (ONCR) | payer MEDICARE, MEDICAID, SELFPAY ==
[2025-04-09 07:57] LABS: Alanine Aminotransferase 16 U/L (0-41); Albumin Level 4.3 g/dL (3.5-5.2); Alkaline Phosphatase 105 U/L (40-130); Anion Gap 12.8 (5-19); Aspartate Amino Transferase 35 U/L (0-40); Blood Urea Nitrogen 9 mg/dL (6-20); Calcium 9.5 mg/dL (8.5-10.5); Carbon Dioxide 30 mmol/L (22-29); Chloride 102 mmol/L (98-107); Ferritin 40 ng/mL (30-400); Globulin 2.9 g/dL (1.3-4.6); Glucose 91 mg/dL (65-115); Osmolality Calculated 290 mOsm/kg (285-295); Potassium 3.8 mmol/L (3.5-5.1); Sodium 141 mmol/L (136-145); Total Protein 7.2 g/dL (6.6-8.7)
--- NOTE | 2025-04-09 08:01 | PC.NURSE ---
Patient notified his ferritin level was 40 today based on labs drawn today. Per ambulatory orders, the patient does not require a phlebotomy. Patient will return for scheduled visit with lab draws next moth to reevaluate.
== END 2025-05-06 23:59 | disposition home or self-care (01) ==
PROVIDERS: PCP Physician Assistant; Visit Provider Internal Medicine Medical Oncology
DX: E83.110 Hereditary hemochromatosis; Z53.9 Procedure and treatment not carried out, unspecified reason
CPT/HCPCS: 36415; 80053; 82728

== ENCOUNTER 2025-05-07 07:27 | Oncology outpatient (recurring) (ONCR) | payer MEDICARE, MEDICAID, SELFPAY ==
[2025-05-07 07:43] LABS: Hematocrit 39.9 % (37-53); Hemoglobin 12.90 g/dL (11.27-16.99); Mean Corpuscular HGB Conc 32.3 g/dL (30-55); Mean Corpuscular Hemoglobin 31.5 pg (27-33); Mean Corpuscular Volume 97.3 fl (82-101); Nucleated Red Blood Cells % 0 %; Platelet Count 154 10^3/cmm (157-399); Red Blood Count 4.10 10^6/uL (3.85-5.65); White Blood Count 4.12 10^3/uL (3.29-11.43)
[2025-05-07 08:00] LABS: Alanine Aminotransferase 29 U/L (0-41); Albumin Level 4.3 g/dL (3.5-5.2); Alkaline Phosphatase 97 U/L (40-130); Blood Urea Nitrogen 9 mg/dL (6-20); Calcium 9.8 mg/dL (8.5-10.5); Carbon Dioxide 30 mmol/L (22-29); Chloride 100 mmol/L (98-107); Ferritin 71 ng/mL (30-400); Globulin 3.0 g/dL (1.3-4.6); Glucose 87 mg/dL (65-115); Osmolality Calculated 292 mOsm/kg (285-295); Sodium 142 mmol/L (136-145); Total Protein 7.3 g/dL (6.6-8.7)
[2025-05-07 08:09] LABS: Anion Gap 15.8 (5-19); Potassium 3.8 mmol/L (3.5-5.1)
[2025-05-07 08:10] LABS: Aspartate Amino Transferase 76 U/L (0-40)
== END 2025-06-06 23:59 | disposition home or self-care (01) ==
PROVIDERS: PCP Physician Assistant; Visit Provider Internal Medicine Medical Oncology
DX: Z53.9 Procedure and treatment not carried out, unspecified reason; E83.110 Hereditary hemochromatosis; D75.1 Secondary polycythemia
CPT/HCPCS: 36415; 80053; 82728; 85025